=== PATIENT | female | born 1970 | race Caucasian/White ===

== ENCOUNTER 2018-03-16 15:47 | Emergency (ER) | payer OTHER ==
[~2018-03-16] VITALS: Ht 154.9 cm; Wt 96.6 kg
[~2018-03-16 15:47] MED LIST: AMIT50; AMLO10 PO; ASPI81EC PO; AZITHROMYCIN; BENADRYL; BUPR150ER PO; BUPR150T2 PO; CHOLESTEROL MED; DIVA125EC; DIVA250EC; FAMO20; HYDACE5 PO; IBUP600 PO; Inderal60 MG PO; Kristalose20 GM PO; LATUDA; LATUDA120 MG PO; MAGCIT300 PO; MULVITMINE; NAPR500 PO; OLAN10 PO; OLAN2.5 PO; OMEP20ER PO; OMEP40CA12 PO; OXYACE5T PO; PRAV20 PO; PRAZ1 PO; PROACE100 PO; PROP10 PO; RANI150; RANI150 PO; RXNEOPOLHC AD; SIMV10 PO; SIMV20 PO; SIMV40 PO; STOOL SOFTNERS; TRAM50 PO
== END 2018-03-16 16:54 | disposition home or self-care (01) ==
LOC: ER 15:47
DX: J06.9 Acute upper respiratory infection, unspecified (principal); F41.9 Anxiety disorder, unspecified; I10 Essential (primary) hypertension; E78.5 Hyperlipidemia, unspecified; F31.9 Bipolar disorder, unspecified; Z88.5 Allergy status to narcotic agent; Z88.6 Allergy status to analgesic agent; Z88.0 Allergy status to penicillin; Z88.8 Allergy status to other drugs, medicaments and biological substances; Z79.899 Other long term (current) drug therapy
CPT/HCPCS: 99283

== ENCOUNTER → 2018-06-23 | Outpatient (CLI) | payer OTHER ==
[2018-06-25 14:07] LABS: HPV 16 Negative (Negative); HPV 18 Negative (Negative); HPV OTHER HR TYPES Negative (Negative)
== END | disposition home or self-care (01) ==
LOC: LAB 11:51 → LAB SHORT 11:51
PROVIDERS: Obstetrics & Gynecology
DX: Z01.419 Encounter for gynecological examination (general) (routine) without abnormal findings (principal)
CPT/HCPCS: 87624; G0123

== ENCOUNTER 2018-09-25 14:12 | Emergency (ER) | payer OTHER ==
[~2018-09-25] VITALS: Ht 154.9 cm; Wt 90.7 kg
[2018-09-25] MEDS ORDERED: Moviprep Powde1 EACH PO (18:42)
== END 2018-09-25 18:56 | disposition home or self-care (01) ==
LOC: ER 14:12
DX: K59.00 Constipation, unspecified (principal); F41.9 Anxiety disorder, unspecified; I10 Essential (primary) hypertension; E78.5 Hyperlipidemia, unspecified; F31.9 Bipolar disorder, unspecified; Z88.0 Allergy status to penicillin; Z88.6 Allergy status to analgesic agent; Z88.8 Allergy status to other drugs, medicaments and biological substances; Z79.899 Other long term (current) drug therapy
CPT/HCPCS: 74019; 99283-25

== ENCOUNTER 2018-12-04 19:54 | Emergency (ER) | payer OTHER ==
[~2018-12-04] VITALS: Ht 175.3 cm; Wt 86.2 kg
[~2018-12-04 19:54] MED LIST changes: +Moviprep Powde1 EACH PO
[2018-12-04 20:53] LABS: BASOPHILS ABSOLUTE AUTO 0.05 K/mm3 (0.00-0.23); BASOPHILS PERCENT AUTO 1 % (0-2); EOSINOPHILS ABSOLUTE AUTO 0.27 K/mm3 (0.00-0.68); EOSINOPHILS PERCENT AUTO 3 % (0-6); Hematocrit 40.7 % (33.0-51.0); Hemoglobin 13.2 g/dL (11.5-16.0); IMMATURE GRAN ABSOLUTE AUTO 0.03 K/mm3 (0.00-0.10); IMMATURE GRAN PERCENT AUTO 0 % (0-1); LYMPHOCYTES ABSOLUTE AUTO 3.06 K/mm3 (0.84-5.20); LYMPHOCYTES PERCENT AUTO 29 % (21-46); MONOCYTES ABSOLUTE AUTO 0.89 K/mm3 (0.16-1.47); MONOCYTES PERCENT AUTO 8 % (4-13); Mean Corpuscular HGB 29.9 pg (26.0-34.0); Mean Corpuscular HGB Conc 32.4 g/dL (31.5-36.5); Mean Corpuscular Volume 92 fL (80-100); Mean Platelet Volume 10.5 fL (9.1-12.4); NEUTROPHILS ABSOLUTE AUTO 6.41 K/mm3 (1.96-9.15); NEUTROPHILS PERCENT AUTO 60 % (41-73); Platelet Count 311 K/mm3 (150-400); RDW Coefficient Variation 12.5 % (11.7-14.2); RDW Standard Deviation 42.1 fL (35.1-46.3); Red Blood Cell Count 4.42 M/mm3 (3.80-5.20); White Blood Cell Count 10.71 K/mm3 (4.00-11.30)
[2018-12-04 21:10] LABS: Alanine Aminotransfer (ALT/SGP 21 U/L (12-78); Albumin, Blood 3.5 g/dL (3.4-5.0); Alk Phos 94 U/L (50-136); Anion Gap 6 mmol/L (6-16); Aspartate Aminotrans (AST/SGOT 15 U/L (12-37); Bilirubin, Total 0.2 mg/dL (0.1-1.0); Blood Urea Nitrogen 9 mg/dL (8-24); Bun/Creatinine Ratio 11.5 (12.0-20.0); CO2, Blood 28 mmol/L (21-32); Calcium, Blood 8.4 mg/dL (8.5-10.1); Chloride, Blood 107 mmol/L (98-108); Creatinine, Blood 0.78 mg/dL (0.40-1.00); Globulin, Blood 3.4 g/dL (2.2-4.0); Glomerular Filtration Rate >60 (60-); Glucose, Blood 89 mg/dL (70-99); Potassium, Blood 3.7 mmol/L (3.5-5.5); Sodium, Blood 141 mmol/L (136-145); Total Protein, Blood 6.9 g/dL (6.4-8.2)
== END 2018-12-05 00:10 | disposition home or self-care (01) ==
LOC: ER 19:54
PROVIDERS: Emergency Medicine
DX: R10.11 Right upper quadrant pain (principal); R74.8 Abnormal levels of other serum enzymes; R11.2 Nausea with vomiting, unspecified; I10 Essential (primary) hypertension; F41.9 Anxiety disorder, unspecified; F31.9 Bipolar disorder, unspecified; E78.5 Hyperlipidemia, unspecified; Z88.5 Allergy status to narcotic agent; Z88.8 Allergy status to other drugs, medicaments and biological substances; Z88.0 Allergy status to penicillin; Z91.018 Allergy to other foods; Z79.899 Other long term (current) drug therapy
CPT/HCPCS: 36415; 74177; 80053; 83690; 85025; 96374-59; 99284-25; J2405; J7120; Q9967

== ENCOUNTER 2019-01-26 09:53 | Day surgery (SDC) | payer OTHER ==
[~2019-01-26] VITALS: Ht 154.9 cm; Wt 90.7 kg
[~2019-01-26 09:53] MED LIST changes: +ATOR40TA; +DORZOLAMIDE 2%10 ML; +ERYT1OIN; +IBUP800; +LATA.005SO; +LOSARTAN POTAS100 MG; +Naltrexone HCl50 MG; +ONDA4; +PREDNISOLONE ACE5 ML; +PROP10; +TIMDOROPSO; +TIMO.5OPSO; +Zantac150 MG
--- NOTE | 2019-01-26 11:20 | NUR ---
01/26/19 1120 MELINDA POOLE 1 IV ATTEMPT VEIN ROLLED 2 IV ATTEMPT BY GEOFFREY ROBERTSON
[2019-01-27] MEDS ORDERED: Bentyl20 MG PO (21:41)
== END 2019-01-26 12:11 | disposition home or self-care (01) ==
LOC: ORSCSDS 09:53
PROVIDERS: Internal Medicine Gastroenterology
PROC: 0DB68ZX Excision of Stomach, Via Natural or Artificial Opening Endoscopic, Diagnostic (ICD-10-PCS; principal; 2019-01-26 11:00)
DX: R10.13 Epigastric pain (principal); R11.0 Nausea; K29.80 Duodenitis without bleeding; K29.70 Gastritis, unspecified, without bleeding; K58.1 Irritable bowel syndrome with constipation; I10 Essential (primary) hypertension; E78.5 Hyperlipidemia, unspecified; E66.9 Obesity, unspecified; Z68.38 Body mass index [BMI] 38.0-38.9, adult; F31.9 Bipolar disorder, unspecified; Z79.899 Other long term (current) drug therapy
CPT/HCPCS: 88305; 88342; J2704; J7120

== ENCOUNTER 2019-01-27 17:52 | Emergency (ER) | payer OTHER ==
[~2019-01-27] VITALS: Ht 154.9 cm; Wt 90.7 kg
[2019-01-27 18:50] LABS: BASOPHILS ABSOLUTE AUTO 0.05 K/mm3 (0.00-0.23); BASOPHILS PERCENT AUTO 0 % (0-2); EOSINOPHILS ABSOLUTE AUTO 0.24 K/mm3 (0.00-0.68); EOSINOPHILS PERCENT AUTO 2 % (0-6); Hematocrit 46.6 % (33.0-51.0); Hemoglobin 15.2 g/dL (11.5-16.0); IMMATURE GRAN ABSOLUTE AUTO 0.05 K/mm3 (0.00-0.10); IMMATURE GRAN PERCENT AUTO 0 % (0-1); LYMPHOCYTES ABSOLUTE AUTO 2.18 K/mm3 (0.84-5.20); LYMPHOCYTES PERCENT AUTO 15 % (21-46); MONOCYTES ABSOLUTE AUTO 1.04 K/mm3 (0.16-1.47); MONOCYTES PERCENT AUTO 7 % (4-13); Mean Corpuscular HGB 29.7 pg (26.0-34.0); Mean Corpuscular HGB Conc 32.6 g/dL (31.5-36.5); Mean Corpuscular Volume 91 fL (80-100); NEUTROPHILS PERCENT AUTO 75 % (41-73); Platelet Count 337 K/mm3 (150-400); RDW Coefficient Variation 12.1 % (11.7-14.2); RDW Standard Deviation 40.4 fL (35.1-46.3); Red Blood Cell Count 5.12 M/mm3 (3.80-5.20); White Blood Cell Count 14.46 K/mm3 (4.00-11.30)
[2019-01-27 19:21] LABS: Alanine Aminotransfer (ALT/SGP 21 U/L (12-78); Albumin, Blood 3.4 g/dL (3.4-5.0); Albumin/Globulin Ratio 0.9 (0.8-1.8); Alk Phos 89 U/L (50-136); Anion Gap 6 mmol/L (6-16); Aspartate Aminotrans (AST/SGOT 15 U/L (12-37); Bilirubin, Total 0.4 mg/dL (0.1-1.0); Blood Urea Nitrogen 8 mg/dL (8-24); CO2, Blood 27 mmol/L (21-32); Calcium, Blood 8.8 mg/dL (8.5-10.1); Chloride, Blood 107 mmol/L (98-108); Creatinine, Blood 0.73 mg/dL (0.40-1.00); Globulin, Blood 3.9 g/dL (2.2-4.0); Glomerular Filtration Rate >60 (60-); Glucose, Blood 97 mg/dL (70-99); Potassium, Blood 4.2 mmol/L (3.5-5.5); Sodium, Blood 140 mmol/L (136-145); Total Protein, Blood 7.3 g/dL (6.4-8.2)
[2019-01-27] MEDS ORDERED: Bentyl20 MG PO (21:41)
== END 2019-01-27 22:02 | disposition home or self-care (01) ==
LOC: ER 17:52
PROVIDERS: Physician Assistant
DX: K52.9 Noninfective gastroenteritis and colitis, unspecified (principal); K29.90 Gastroduodenitis, unspecified, without bleeding; I10 Essential (primary) hypertension; F41.9 Anxiety disorder, unspecified; E78.5 Hyperlipidemia, unspecified; F31.9 Bipolar disorder, unspecified; Z88.5 Allergy status to narcotic agent; Z88.0 Allergy status to penicillin; Z91.018 Allergy to other foods; Z88.8 Allergy status to other drugs, medicaments and biological substances; Z79.899 Other long term (current) drug therapy
CPT/HCPCS: 36415; 74177; 80053; 83690; 85025; 96374-59; 99284-25; J2405; Q9967

== ENCOUNTER 2019-02-27 16:08 | Observation (INO) | payer OTHER ==
[~2019-02-27] VITALS: Ht 154.9 cm; Wt 90.7 kg
[~2019-02-27 16:08] MED LIST changes: +Bentyl20 MG PO
[2019-02-27] MEDS ORDERED: BUPROPION XL150 M1 PO (17:06)
[2019-02-27] MEDS ORDERED: PRAZOSIN HCL1 MG PO (17:10)
[2019-02-27] MEDS ORDERED: Prilosec Otc20 MG PO (17:10)
[2019-02-27] MEDS ORDERED: NATURAL LAXATI8.6 MG PO (17:10)
[2019-02-27] MEDS ORDERED: ATORVASTATIN CA40 MG PO (17:11)
[2019-02-27] MEDS ORDERED: LOSARTAN POTAS100 MG PO (17:11)
[2019-02-27] MEDS ORDERED: LATUDA40 MG PO (17:11)
[2019-02-27] MEDS ORDERED: Naltrexone HCl50 MG PO (17:12)
[2019-02-27] MEDS ORDERED: PROP10 PO (17:13)
[2019-02-27 17:31] LABS: BASOPHILS ABSOLUTE AUTO 0.05 K/mm3 (0.00-0.23); BASOPHILS PERCENT AUTO 1 % (0-2); EOSINOPHILS ABSOLUTE AUTO 0.25 K/mm3 (0.00-0.68); EOSINOPHILS PERCENT AUTO 3 % (0-6); Hematocrit 43.2 % (33.0-51.0); IMMATURE GRAN ABSOLUTE AUTO 0.02 K/mm3 (0.00-0.10); IMMATURE GRAN PERCENT AUTO 0 % (0-1); LYMPHOCYTES ABSOLUTE AUTO 2.09 K/mm3 (0.84-5.20); LYMPHOCYTES PERCENT AUTO 23 % (21-46); MONOCYTES ABSOLUTE AUTO 0.75 K/mm3 (0.16-1.47); MONOCYTES PERCENT AUTO 8 % (4-13); Mean Corpuscular HGB 29.5 pg (26.0-34.0); Mean Corpuscular HGB Conc 32.4 g/dL (31.5-36.5); Mean Corpuscular Volume 91 fL (80-100); Mean Platelet Volume 10.4 fL (9.1-12.4); NEUTROPHILS ABSOLUTE AUTO 5.78 K/mm3 (1.96-9.15); NEUTROPHILS PERCENT AUTO 65 % (41-73); Platelet Count 318 K/mm3 (150-400); RDW Coefficient Variation 11.9 % (11.7-14.2); RDW Standard Deviation 39.9 fL (35.1-46.3); Red Blood Cell Count 4.74 M/mm3 (3.80-5.20); White Blood Cell Count 8.94 K/mm3 (4.00-11.30)
[2019-02-27] MEDS ORDERED: Fiber Therapy0.52 GM PO (17:34)
[2019-02-27] MEDS ORDERED: COLACE100 MG PO (17:36)
[2019-02-27 17:50] LABS: Alanine Aminotransfer (ALT/SGP 25 U/L (12-78); Albumin, Blood 3.4 g/dL (3.4-5.0); Albumin/Globulin Ratio 0.9 (0.8-1.8); Alk Phos 85 U/L (50-136); Anion Gap 4 mmol/L (6-16); Aspartate Aminotrans (AST/SGOT 13 U/L (12-37); Bilirubin, Total 0.2 mg/dL (0.1-1.0); Blood Urea Nitrogen 7 mg/dL (8-24); Bun/Creatinine Ratio 9.6 (12.0-20.0); CO2, Blood 29 mmol/L (21-32); Calcium, Blood 8.3 mg/dL (8.5-10.1); Chloride, Blood 105 mmol/L (98-108); Creatinine, Blood 0.73 mg/dL (0.40-1.00); Ethanol (Alcohol), Blood, Med <3 mg/dL; Globulin, Blood 3.7 g/dL (2.2-4.0); Glomerular Filtration Rate >60 (60-); Glucose, Blood 97 mg/dL (70-99); Potassium, Blood 3.8 mmol/L (3.5-5.5); Salicylate <1.7 mg/dL (2.8-20.0); Sodium, Blood 138 mmol/L (136-145); Total Protein, Blood 7.1 g/dL (6.4-8.2)
[2019-02-27 17:52] LABS: Acetaminophen, Random <2.0 ug/mL (10.0-30.0)
[2019-02-27 18:22] LABS: Source, Urine Clean Catch
[2019-02-27 18:28] LABS: Bilirubin, Urine Neg (Neg); Blood, Urine 5+ (Neg); Glucose Qualitative, Urine Neg (Neg); Ketones, Urine Neg (Neg); Leukocyte Esterase, Urine 3+ (Neg); Nitrite, Urine Neg (Neg); Protein, Urine 3+ (Neg); Urobilinogen, Urine NORM (Normal)
[2019-02-27 18:35] LABS: Appearance, Urine Bloody (Clear); Color, Urine Red (P-Yellow)
[2019-02-27 18:36] LABS: Bacteria Mod /hpf; Red Blood Cells, Urine TNTC /hpf (0-2); Squamous Epithelial Cells Few /hpf (Few)
[2019-02-27 18:41] LABS: U Amphetamine Screen Not Detected; U Barbituate Screen Not Detected; U Benzodiazapine Screen Not Detected; U Buprenorphine Screen Not Detected; U Cannabinoids Screen Not Detected; U Cocaine Screen Not Detected; U Methadone Screen Not Detected; U Methamphetamine Screen Not Detected; U Opiates Screen Not Detected; U Oxycodone Screen Not Detected; U Phencyclidine Screen Not Detected; U Propoxyphene Screen Not Detected
[2019-02-27] MEDS ORDERED: Klonopin0.5 MG PO (23:27)
== END 2019-02-27 23:49 | disposition home or self-care (01) ==
LOC: ER 16:08 → EOR 17:10
PROVIDERS: Physician Assistant; ADMIT Emergency Medicine
DX: F39 Unspecified mood [affective] disorder (principal); F60.3 Borderline personality disorder; F31.9 Bipolar disorder, unspecified; F43.10 Post-traumatic stress disorder, unspecified; H54.8 Legal blindness, as defined in USA; I10 Essential (primary) hypertension; E78.5 Hyperlipidemia, unspecified; Z79.899 Other long term (current) drug therapy; Z88.0 Allergy status to penicillin; Z88.4 Allergy status to anesthetic agent; Z88.5 Allergy status to narcotic agent; Z88.6 Allergy status to analgesic agent; Z88.8 Allergy status to other drugs, medicaments and biological substances
CPT/HCPCS: 80053; 81001; 81025; 85025; 87086; 99285; G0378; G0480; Q3014

== ENCOUNTER 2019-03-09 14:07 | Emergency (ER) | payer OTHER ==
[~2019-03-09] VITALS: Ht 154.9 cm; Wt 92.1 kg
[~2019-03-09 14:07] MED LIST changes: +ATORVASTATIN CA40 MG PO; +BUPROPION XL150 M1 PO; +COLACE100 MG PO; +Fiber Therapy0.52 GM PO; +Klonopin0.5 MG PO; +LATUDA40 MG PO; +LOSARTAN POTAS100 MG PO; +NATURAL LAXATI8.6 MG PO; +Naltrexone HCl50 MG PO; +PRAZOSIN HCL1 MG PO; +Prilosec Otc20 MG PO
[2019-03-09 15:04] LABS: BASOPHILS ABSOLUTE AUTO 0.04 K/mm3 (0.00-0.23); BASOPHILS PERCENT AUTO 0 % (0-2); EOSINOPHILS PERCENT AUTO 2 % (0-6); Hematocrit 44.3 % (33.0-51.0); Hemoglobin 14.4 g/dL (11.5-16.0); IMMATURE GRAN ABSOLUTE AUTO 0.03 K/mm3 (0.00-0.10); IMMATURE GRAN PERCENT AUTO 0 % (0-1); LYMPHOCYTES ABSOLUTE AUTO 1.89 K/mm3 (0.84-5.20); LYMPHOCYTES PERCENT AUTO 19 % (21-46); MONOCYTES ABSOLUTE AUTO 0.78 K/mm3 (0.16-1.47); MONOCYTES PERCENT AUTO 8 % (4-13); Mean Corpuscular HGB 29.2 pg (26.0-34.0); Mean Corpuscular HGB Conc 32.5 g/dL (31.5-36.5); Mean Corpuscular Volume 90 fL (80-100); Mean Platelet Volume 10.6 fL (9.1-12.4); NEUTROPHILS ABSOLUTE AUTO 7.09 K/mm3 (1.96-9.15); NEUTROPHILS PERCENT AUTO 71 % (41-73); Platelet Count 289 K/mm3 (150-400); RDW Standard Deviation 39.5 fL (35.1-46.3); Red Blood Cell Count 4.93 M/mm3 (3.80-5.20); White Blood Cell Count 10.03 K/mm3 (4.00-11.30)
[2019-03-09 15:31] LABS: Alanine Aminotransfer (ALT/SGP 27 U/L (12-78); Albumin, Blood 3.3 g/dL (3.4-5.0); Albumin/Globulin Ratio 0.9 (0.8-1.8); Alk Phos 86 U/L (50-136); Anion Gap 4 mmol/L (6-16); Aspartate Aminotrans (AST/SGOT 12 U/L (12-37); Beta HCG, Quantitative, Serum <1 mIU/mL (0-3); Bilirubin, Total 0.3 mg/dL (0.1-1.0); Blood Urea Nitrogen 8 mg/dL (8-24); Bun/Creatinine Ratio 11.1 (12.0-20.0); CO2, Blood 30 mmol/L (21-32); Calcium, Blood 8.3 mg/dL (8.5-10.1); Chloride, Blood 106 mmol/L (98-108); Creatinine, Blood 0.72 mg/dL (0.40-1.00); Globulin, Blood 3.6 g/dL (2.2-4.0); Glomerular Filtration Rate >60 (60-); Glucose, Blood 100 mg/dL (70-99); Potassium, Blood 4.1 mmol/L (3.5-5.5); Sodium, Blood 140 mmol/L (136-145); Total Protein, Blood 6.9 g/dL (6.4-8.2)
[2019-03-09] MEDS ORDERED: OMEPRAZOLE MAGN20 MG PO (15:45)
[2019-03-09] MEDS ORDERED: BELPTAB PO (15:45)
== END 2019-03-09 16:03 | disposition home or self-care (01) ==
LOC: ER 14:07
PROVIDERS: Emergency Medicine
DX: R10.13 Epigastric pain (principal); E78.5 Hyperlipidemia, unspecified; Z88.5 Allergy status to narcotic agent; Z88.0 Allergy status to penicillin; Z88.6 Allergy status to analgesic agent; Z88.8 Allergy status to other drugs, medicaments and biological substances; Z79.899 Other long term (current) drug therapy
CPT/HCPCS: 80053; 83690; 84702; 85025; 96361; 96374; 96375; 99284-25; J2060; J2405; J7120

== ENCOUNTER 2019-07-02 16:42 | Observation (INO) | payer OTHER ==
[~2019-07-02] VITALS: Ht 154.9 cm; Wt 90.7 kg
[~2019-07-02 16:42] MED LIST changes: +BELPTAB PO; +OMEPRAZOLE MAGN20 MG PO
[2019-07-02 17:57] LABS: Source, Urine Clean Catch
[2019-07-02 18:03] LABS: Bilirubin, Urine Neg (Neg); Blood, Urine Neg (Neg); Glucose Qualitative, Urine Neg (Neg); Ketones, Urine 2+ (Neg); Leukocyte Esterase, Urine Neg (Neg); Nitrite, Urine Neg (Neg); Protein, Urine Neg (Neg); Urobilinogen, Urine NORM (Normal)
[2019-07-02 18:09] LABS: Appearance, Urine Clear (Clear); Color, Urine Yellow (P-Yellow)
[2019-07-02 18:23] LABS: U Amphetamine Screen Not Detected; U Barbituate Screen Not Detected; U Benzodiazapine Screen Not Detected; U Buprenorphine Screen Not Detected; U Cannabinoids Screen Not Detected; U Cocaine Screen Not Detected; U Methadone Screen Not Detected; U Methamphetamine Screen Not Detected; U Opiates Screen Not Detected; U Oxycodone Screen Not Detected; U Phencyclidine Screen Not Detected; U Propoxyphene Screen Not Detected
[2019-07-02 18:37] LABS: BASOPHILS ABSOLUTE AUTO 0.06 K/mm3 (0.00-0.23); BASOPHILS PERCENT AUTO 1 % (0-2); EOSINOPHILS ABSOLUTE AUTO 0.17 K/mm3 (0.00-0.68); EOSINOPHILS PERCENT AUTO 2 % (0-6); Hematocrit 43.3 % (33.0-51.0); IMMATURE GRAN ABSOLUTE AUTO 0.04 K/mm3 (0.00-0.10); IMMATURE GRAN PERCENT AUTO 0 % (0-1); LYMPHOCYTES PERCENT AUTO 19 % (21-46); MONOCYTES ABSOLUTE AUTO 0.76 K/mm3 (0.16-1.47); MONOCYTES PERCENT AUTO 7 % (4-13); Mean Corpuscular HGB 28.6 pg (26.0-34.0); Mean Corpuscular HGB Conc 32.3 g/dL (31.5-36.5); Mean Corpuscular Volume 89 fL (80-100); Mean Platelet Volume 10.2 fL (9.1-12.4); NEUTROPHILS ABSOLUTE AUTO 7.69 K/mm3 (1.96-9.15); NEUTROPHILS PERCENT AUTO 71 % (41-73); Platelet Count 329 K/mm3 (150-400); RDW Coefficient Variation 12.3 % (11.7-14.2); RDW Standard Deviation 40.2 fL (35.1-46.3); Red Blood Cell Count 4.89 M/mm3 (3.80-5.20); White Blood Cell Count 10.82 K/mm3 (4.00-11.30)
[2019-07-02 18:58] LABS: Alanine Aminotransfer (ALT/SGP 21 U/L (12-78); Albumin, Blood 3.5 g/dL (3.4-5.0); Albumin/Globulin Ratio 0.9 (0.8-1.8); Alk Phos 100 U/L (50-136); Anion Gap 5 mmol/L (6-16); Aspartate Aminotrans (AST/SGOT 16 U/L (12-37); Bilirubin, Total 0.3 mg/dL (0.1-1.0); Blood Urea Nitrogen 8 mg/dL (8-24); Bun/Creatinine Ratio 11.8 (12.0-20.0); CO2, Blood 27 mmol/L (21-32); Calcium, Blood 8.4 mg/dL (8.5-10.1); Chloride, Blood 105 mmol/L (98-108); Creatinine, Blood 0.68 mg/dL (0.40-1.00); Ethanol (Alcohol), Blood, Med <3 mg/dL; Globulin, Blood 3.9 g/dL (2.2-4.0); Glomerular Filtration Rate >60 (60-); Glucose, Blood 103 mg/dL (70-99); Potassium, Blood 3.6 mmol/L (3.5-5.5); Sodium, Blood 137 mmol/L (136-145); Total Protein, Blood 7.4 g/dL (6.4-8.2)
== END 2019-07-04 12:35 | disposition home or self-care (01) ==
LOC: ER 16:42 → EOR 16:43
PROVIDERS: ADMIT Emergency Medicine
DX: F31.9 Bipolar disorder, unspecified (principal); F60.3 Borderline personality disorder; E78.5 Hyperlipidemia, unspecified; Z88.0 Allergy status to penicillin; Z88.6 Allergy status to analgesic agent; Z88.5 Allergy status to narcotic agent; Z88.8 Allergy status to other drugs, medicaments and biological substances; Z79.899 Other long term (current) drug therapy
CPT/HCPCS: 36415; 80053; 81003; 85025; 99285; G0378; G0480; Q3014

== ENCOUNTER 2019-11-16 09:44 | Emergency (ER) | payer OTHER ==
[~2019-11-16] VITALS: Ht 154.9 cm; Wt 99.3 kg
[2019-11-16 10:14] LABS: Source, Urine Clean Catch
[2019-11-16 10:21] LABS: Appearance, Urine Clear (Clear); Bilirubin, Urine Neg (Neg); Blood, Urine Neg (Neg); Color, Urine Yellow (P-Yellow); Glucose Qualitative, Urine Neg (Neg); Ketones, Urine Neg (Neg); Leukocyte Esterase, Urine Neg (Neg); Nitrite, Urine Neg (Neg); Protein, Urine Neg (Neg); Specific Gravity, Urine 1.005 (1.003-1.022); Urobilinogen, Urine NORM (Normal)
[2019-11-16 10:26] LABS: BASOPHILS ABSOLUTE AUTO 0.04 K/mm3 (0.00-0.23); BASOPHILS PERCENT AUTO 0 % (0-2); EOSINOPHILS ABSOLUTE AUTO 0.25 K/mm3 (0.00-0.68); EOSINOPHILS PERCENT AUTO 3 % (0-6); Hematocrit 41.9 % (33.0-51.0); Hemoglobin 13.5 g/dL (11.5-16.0); IMMATURE GRAN ABSOLUTE AUTO 0.03 K/mm3 (0.00-0.10); IMMATURE GRAN PERCENT AUTO 0 % (0-1); LYMPHOCYTES ABSOLUTE AUTO 1.97 K/mm3 (0.84-5.20); LYMPHOCYTES PERCENT AUTO 21 % (21-46); MONOCYTES ABSOLUTE AUTO 0.86 K/mm3 (0.16-1.47); MONOCYTES PERCENT AUTO 9 % (4-13); Mean Corpuscular HGB 29.2 pg (26.0-34.0); Mean Corpuscular HGB Conc 32.2 g/dL (31.5-36.5); Mean Corpuscular Volume 91 fL (80-100); Mean Platelet Volume 10.2 fL (9.1-12.4); NEUTROPHILS ABSOLUTE AUTO 6.45 K/mm3 (1.96-9.15); NEUTROPHILS PERCENT AUTO 67 % (41-73); Platelet Count 272 K/mm3 (150-400); RDW Coefficient Variation 12.8 % (11.7-14.2); Red Blood Cell Count 4.62 M/mm3 (3.80-5.20)
[2019-11-16 10:43] LABS: Alanine Aminotransfer (ALT/SGP 31 U/L (12-78); Albumin, Blood 3.2 g/dL (3.4-5.0); Albumin/Globulin Ratio 0.9 (0.8-1.8); Alk Phos 88 U/L (50-136); Anion Gap 6 mmol/L (6-16); Aspartate Aminotrans (AST/SGOT 15 U/L (12-37); Bilirubin, Total 0.4 mg/dL (0.1-1.0); Blood Urea Nitrogen 6 mg/dL (8-24); Bun/Creatinine Ratio 7.8 (12.0-20.0); CO2, Blood 29 mmol/L (21-32); Calcium, Blood 8.2 mg/dL (8.5-10.1); Chloride, Blood 105 mmol/L (98-108); Creatinine, Blood 0.77 mg/dL (0.40-1.00); Globulin, Blood 3.7 g/dL (2.2-4.0); Glomerular Filtration Rate >60 (60-); Glucose, Blood 94 mg/dL (70-99); Potassium, Blood 3.8 mmol/L (3.5-5.5); Sodium, Blood 140 mmol/L (136-145); Total Protein, Blood 6.9 g/dL (6.4-8.2)
== END 2019-11-16 13:55 | disposition home or self-care (01) ==
LOC: ER 09:44
PROVIDERS: Emergency Medicine
DX: R10.30 Lower abdominal pain, unspecified (principal); G89.29 Other chronic pain; Z88.0 Allergy status to penicillin; Z88.5 Allergy status to narcotic agent; Z88.8 Allergy status to other drugs, medicaments and biological substances; Z79.899 Other long term (current) drug therapy; F31.9 Bipolar disorder, unspecified; F41.9 Anxiety disorder, unspecified; I10 Essential (primary) hypertension; E78.5 Hyperlipidemia, unspecified
CPT/HCPCS: 36415; 74177; 80053; 81003; 85025; 99284-25; Q9967

== ENCOUNTER → 2019-12-14 | Outpatient (CLI) | payer OTHER ==
[~2019-12-14] MED LIST changes: +BRIMONIDINE TART5 M1; +FLUO10 PO; +ONDA4ODT MM; +SENN187 PO; +TIMO.5OPSO BOTHEYES; +VOLTAREN ARTHRI20 GM TOP; +ZIPR40 PO
[2019-12-16 17:09] LABS: HPV 16 Negative (Negative); HPV 18 Negative (Negative); HPV OTHER HR TYPES Negative (Negative)
== END | disposition home or self-care (01) ==
LOC: LAB SHORT 12:04 → LAB 12:04
PROVIDERS: Obstetrics & Gynecology
DX: Z01.419 Encounter for gynecological examination (general) (routine) without abnormal findings (principal)
CPT/HCPCS: 87624; G0123

== ENCOUNTER 2020-01-02 17:36 | Observation (INO) | payer OTHER ==
[~2020-01-02] VITALS: Ht 154.9 cm; Wt 99.3 kg
[~2020-01-02 17:36] MED LIST changes: -BRIMONIDINE TART5 M1; -FLUO10 PO; -ONDA4ODT MM; -SENN187 PO; -TIMO.5OPSO BOTHEYES; -VOLTAREN ARTHRI20 GM TOP; -ZIPR40 PO
[2020-01-02] MEDS ORDERED: SENN187 PO (20:04)
[2020-01-02] MEDS ORDERED: VOLTAREN ARTHRI20 GM TOP (20:06)
[2020-01-02] MEDS ORDERED: ZIPR40 PO (20:08)
[2020-01-02] MEDS ORDERED: ONDA4ODT MM (20:09)
[2020-01-02] MEDS ORDERED: FLUO10 PO (20:11)
[2020-01-02] MEDS ORDERED: TIMO.5OPSO BOTHEYES (20:14)
[2020-01-02] MEDS ORDERED: BRIMONIDINE TART5 M1 (20:14)
[2020-01-02 20:17] LABS: Source, Urine Clean Catch
[2020-01-02 20:20] LABS: Appearance, Urine Clear (Clear); Bilirubin, Urine Neg (Neg); Blood, Urine Neg (Neg); Color, Urine Yellow (P-Yellow); Glucose Qualitative, Urine Neg (Neg); Ketones, Urine Neg (Neg); Leukocyte Esterase, Urine Neg (Neg); Nitrite, Urine Neg (Neg); Protein, Urine Neg (Neg); Urobilinogen, Urine NORM (Normal); pH, Urine 6.5 (5.0-8.0)
[2020-01-02 20:43] LABS: U Amphetamine Screen Not Detected; U Barbituate Screen Not Detected; U Benzodiazapine Screen Not Detected; U Buprenorphine Screen Not Detected; U Cannabinoids Screen Not Detected; U Cocaine Screen Not Detected; U Methadone Screen Not Detected; U Methamphetamine Screen Not Detected; U Opiates Screen Not Detected; U Oxycodone Screen Not Detected; U Phencyclidine Screen Not Detected; U Propoxyphene Screen Not Detected
[2020-01-02 20:45] LABS: BASOPHILS ABSOLUTE AUTO 0.07 K/mm3 (0.00-0.23); BASOPHILS PERCENT AUTO 1 % (0-2); EOSINOPHILS ABSOLUTE AUTO 0.31 K/mm3 (0.00-0.68); EOSINOPHILS PERCENT AUTO 3 % (0-6); Hematocrit 43.5 % (33.0-51.0); Hemoglobin 13.9 g/dL (11.5-16.0); IMMATURE GRAN ABSOLUTE AUTO 0.06 K/mm3 (0.00-0.10); IMMATURE GRAN PERCENT AUTO 1 % (0-1); LYMPHOCYTES ABSOLUTE AUTO 2.96 K/mm3 (0.84-5.20); LYMPHOCYTES PERCENT AUTO 27 % (21-46); MONOCYTES ABSOLUTE AUTO 1.17 K/mm3 (0.16-1.47); MONOCYTES PERCENT AUTO 11 % (4-13); Mean Corpuscular HGB 28.8 pg (26.0-34.0); Mean Corpuscular Volume 90 fL (80-100); Mean Platelet Volume 10.1 fL (9.1-12.4); NEUTROPHILS ABSOLUTE AUTO 6.59 K/mm3 (1.96-9.15); NEUTROPHILS PERCENT AUTO 59 % (41-73); Platelet Count 336 K/mm3 (150-400); RDW Coefficient Variation 13.1 % (11.7-14.2); RDW Standard Deviation 42.9 fL (35.1-46.3); Red Blood Cell Count 4.82 M/mm3 (3.80-5.20); White Blood Cell Count 11.16 K/mm3 (4.00-11.30)
[2020-01-02] MEDS ORDERED: BUPR150ER PO (20:52)
[2020-01-02 21:20] LABS: Alanine Aminotransfer (ALT/SGP 32 U/L (12-78); Albumin, Blood 3.3 g/dL (3.4-5.0); Albumin/Globulin Ratio 0.9 (0.8-1.8); Alk Phos 87 U/L (50-136); Anion Gap 6 mmol/L (6-16); Aspartate Aminotrans (AST/SGOT 12 U/L (12-37); Bilirubin, Total 0.4 mg/dL (0.1-1.0); Blood Urea Nitrogen 8 mg/dL (8-24); Bun/Creatinine Ratio 11.4 (12.0-20.0); CO2, Blood 28 mmol/L (21-32); Calcium, Blood 8.5 mg/dL (8.5-10.1); Chloride, Blood 106 mmol/L (98-108); Ethanol (Alcohol), Blood, Med <3 mg/dL; Globulin, Blood 3.8 g/dL (2.2-4.0); Glomerular Filtration Rate >60 (60-); Glucose, Blood 88 mg/dL (70-99); Salicylate <1.7 mg/dL (2.8-20.0); Sodium, Blood 140 mmol/L (136-145); Thyroxine (T4) 11.2 ug/dL (4.8-13.9); Total Protein, Blood 7.1 g/dL (6.4-8.2)
[2020-01-02 21:23] LABS: Acetaminophen, Random <2.0 ug/mL (10.0-30.0)
== END 2020-01-04 00:10 ==
LOC: ER 17:36 → EOR 17:37
PROVIDERS: Physician Assistant; ADMIT Emergency Medicine
DX: F31.9 Bipolar disorder, unspecified (principal); R45.851 Suicidal ideations; Q11.2 Microphthalmos; I10 Essential (primary) hypertension; F41.8 Other specified anxiety disorders; E78.5 Hyperlipidemia, unspecified; F60.3 Borderline personality disorder; K21.9 Gastro-esophageal reflux disease without esophagitis; H40.9 Unspecified glaucoma; E66.9 Obesity, unspecified; Z68.41 Body mass index [BMI] 40.0-44.9, adult; Z88.0 Allergy status to penicillin; Z88.4 Allergy status to anesthetic agent; Z88.5 Allergy status to narcotic agent; Z88.8 Allergy status to other drugs, medicaments and biological substances; Z79.899 Other long term (current) drug therapy; Z20.828 Contact with and (suspected) exposure to other viral communicable diseases
CPT/HCPCS: 36415; 80053; 81003; 81025; 84436; 84443; 85025; 86592; 99285; G0378; G0480; U0003

== ENCOUNTER 2020-01-20 07:33 | Inpatient (IN) | payer OTHER ==
[~2020-01-20] VITALS: Ht 154.9 cm; Wt 101.5 kg
[~2020-01-20 07:33] MED LIST changes: +BRIMONIDINE TART5 M1 BOTHEYES; +FLUO10 PO; +ONDA4ODT MM; +PRAZ2 PO; -PRAZOSIN HCL1 MG PO; +SENN187 PO; +TIMO.5OPSO BOTHEYES; +VOLTAREN ARTHRI20 GM TOP; +ZIPR40 PO
[2020-01-20 08:15] LABS: BASOPHILS ABSOLUTE AUTO 0.07 K/mm3 (0.00-0.23); BASOPHILS PERCENT AUTO 0 % (0-2); EOSINOPHILS ABSOLUTE AUTO 0.12 K/mm3 (0.00-0.68); EOSINOPHILS PERCENT AUTO 1 % (0-6); Hematocrit 44.9 % (33.0-51.0); IMMATURE GRAN ABSOLUTE AUTO 0.06 K/mm3 (0.00-0.10); IMMATURE GRAN PERCENT AUTO 0 % (0-1); LYMPHOCYTES ABSOLUTE AUTO 1.94 K/mm3 (0.84-5.20); LYMPHOCYTES PERCENT AUTO 12 % (21-46); MONOCYTES ABSOLUTE AUTO 0.89 K/mm3 (0.16-1.47); MONOCYTES PERCENT AUTO 6 % (4-13); Mean Corpuscular HGB 29.5 pg (26.0-34.0); Mean Corpuscular HGB Conc 33.4 g/dL (31.5-36.5); Mean Corpuscular Volume 88 fL (80-100); NEUTROPHILS ABSOLUTE AUTO 13.01 K/mm3 (1.96-9.15); NEUTROPHILS PERCENT AUTO 81 % (41-73); Platelet Count 376 K/mm3 (150-400); RDW Coefficient Variation 12.5 % (11.7-14.2); Red Blood Cell Count 5.08 M/mm3 (3.80-5.20); White Blood Cell Count 16.09 K/mm3 (4.00-11.30)
[2020-01-20 08:32] LABS: Alanine Aminotransfer (ALT/SGP 28 U/L (12-78); Albumin, Blood 3.6 g/dL (3.4-5.0); Albumin/Globulin Ratio 0.9 (0.8-1.8); Alk Phos 92 U/L (50-136); Anion Gap 7 mmol/L (6-16); Aspartate Aminotrans (AST/SGOT 17 U/L (12-37); Bilirubin, Total 0.7 mg/dL (0.1-1.0); Blood Urea Nitrogen 8 mg/dL (8-24); Bun/Creatinine Ratio 12.2 (12.0-20.0); CO2, Blood 30 mmol/L (21-32); Calcium, Blood 8.9 mg/dL (8.5-10.1); Chloride, Blood 101 mmol/L (98-108); Creatinine, Blood 0.66 mg/dL (0.40-1.00); Globulin, Blood 3.9 g/dL (2.2-4.0); Glomerular Filtration Rate >60 (60-); Glucose, Blood 124 mg/dL (70-99); Potassium, Blood 3.5 mmol/L (3.5-5.5); Sodium, Blood 138 mmol/L (136-145); Total Protein, Blood 7.5 g/dL (6.4-8.2)
[2020-01-20 09:30] LABS: Source, Urine Clean Catch
[2020-01-20 09:40] LABS: Bilirubin, Urine Neg (Neg); Blood, Urine 5+ (Neg); Glucose Qualitative, Urine Neg (Neg); Ketones, Urine 2+ (Neg); Leukocyte Esterase, Urine Neg (Neg); Nitrite, Urine Neg (Neg); Protein, Urine Neg (Neg); Urobilinogen, Urine NORM (Normal)
[2020-01-20 10:01] LABS: Appearance, Urine Clear (Clear); Color, Urine Yellow (P-Yellow)
[2020-01-20 10:02] LABS: Bacteria Rare /hpf; Squamous Epithelial Cells Rare /hpf (Few)
[2020-01-20] MEDS ORDERED: TIMOPTIC 0.25% BOTHEYES (12:38)
[2020-01-20] MEDS ORDERED: POLY500 PO (16:02)
--- NOTE | 2020-01-20 18:42 | NUR ---
SHIFT SUMMARY PATIENT WAS RECENTLY DISCHARGED FROM INPATIENT PSYCHIATRIC CARE ON THE December. SHE STATES AT THIS TIME SHE IS NOT CURRENTLY SUICIDAL, BUT HAS A HISTORY. SHE DOES TAKE MULTIPLE ANTIPSYCHOTICS. SHE DOES HAVE MILD PAIN IN HER ABDOMEN AND IS RUNNING ONE BAG OF FLUIDS AT 100 AN HOUR. SHE IS BLIND IN BOTH EYES BUT MOVES AROUND INDEPENDENT.
[2020-01-21 06:10] LABS: BASOPHILS ABSOLUTE AUTO 0.06 K/mm3 (0.00-0.23); BASOPHILS PERCENT AUTO 1 % (0-2); EOSINOPHILS ABSOLUTE AUTO 0.45 K/mm3 (0.00-0.68); EOSINOPHILS PERCENT AUTO 5 % (0-6); Hematocrit 37.1 % (33.0-51.0); Hemoglobin 11.9 g/dL (11.5-16.0); IMMATURE GRAN ABSOLUTE AUTO 0.03 K/mm3 (0.00-0.10); IMMATURE GRAN PERCENT AUTO 0 % (0-1); LYMPHOCYTES ABSOLUTE AUTO 2.08 K/mm3 (0.84-5.20); LYMPHOCYTES PERCENT AUTO 25 % (21-46); MONOCYTES ABSOLUTE AUTO 0.86 K/mm3 (0.16-1.47); MONOCYTES PERCENT AUTO 10 % (4-13); Mean Corpuscular HGB 29.4 pg (26.0-34.0); Mean Corpuscular HGB Conc 32.1 g/dL (31.5-36.5); Mean Corpuscular Volume 92 fL (80-100); NEUTROPHILS ABSOLUTE AUTO 4.91 K/mm3 (1.96-9.15); NEUTROPHILS PERCENT AUTO 58 % (41-73); Platelet Count 278 K/mm3 (150-400); RDW Coefficient Variation 13.2 % (11.7-14.2); RDW Standard Deviation 44.1 fL (35.1-46.3); Red Blood Cell Count 4.05 M/mm3 (3.80-5.20); White Blood Cell Count 8.39 K/mm3 (4.00-11.30)
[2020-01-21 06:28] LABS: Alanine Aminotransfer (ALT/SGP 20 U/L (12-78); Albumin, Blood 2.7 g/dL (3.4-5.0); Albumin/Globulin Ratio 0.9 (0.8-1.8); Alk Phos 64 U/L (50-136); Anion Gap 6 mmol/L (6-16); Aspartate Aminotrans (AST/SGOT 13 U/L (12-37); Bilirubin, Total 0.6 mg/dL (0.1-1.0); Blood Urea Nitrogen 7 mg/dL (8-24); Bun/Creatinine Ratio 10.3 (12.0-20.0); CO2, Blood 29 mmol/L (21-32); Calcium, Blood 7.5 mg/dL (8.5-10.1); Chloride, Blood 107 mmol/L (98-108); Creatinine, Blood 0.68 mg/dL (0.40-1.00); Glomerular Filtration Rate >60 (60-); Glucose, Blood 88 mg/dL (70-99); Potassium, Blood 3.1 mmol/L (3.5-5.5); Sodium, Blood 142 mmol/L (136-145); Total Protein, Blood 5.7 g/dL (6.4-8.2)
--- NOTE | 2020-01-21 07:56 | NUR ---
METER INSPECTOR SUMMARY Dejah had a peaceful night with her son Tushar. Complaints of pain and anxiety were resolved with roxynol and ativan. Dejah is hoping she will be able to go home with hospice (Perhaps one of her boys homes) possibly tommorow.
--- NOTE | 2020-01-21 11:22 | NUR ---
ASKED THE PATIENT ABOUT CONSENT FOR PERMISSION TO SPEAK WITH [facility] FOR HER DISCHARGE MEDICATION LIST. CURRENTLY SPEAKING TO JUAN FROM [facility] FOR HER INPATIENT DISCAHRGE PACKET FROM [facility] IN [place]. AWAITING A CALL BACK.
--- NOTE | 2020-01-21 11:47 | NUR ---
SPOKE WITH JUAN FROM [facility] AND THEY GAVE A LIST OF PATIENT'S DISCHARGE MEDICATIONS AT TIME OF DISCAHRGE THE FOLLOWING: GEODON 40 MG PO QAM WITH FOOD, PROZAC 60MG PO DAILY WELLBUTRIN 150MG PO DAILY PRAZOSIN 2MG PO BEDTIME PROPRANOLOL 10MG PO BID AND ALL MEDICAL MEDICATIONS PRESCRIBED BY PRIMARY CARE.
--- NOTE | 2020-01-21 16:37 | NUR ---
SHIFT SUMMARY NO ACUTE CONCERNS PER PATIENT. HAS DENIED ANY NEED FOR PAIN MEDICATIONS TODAY. SHE WAS GIVEN HER PSYCH MEDICATIONS THIS MORNING. SHE DENIES ANY CURRENT CONCERNS, AWAITING TO GET OUT OF THE HOSPITAL. MONITORING FOR ANY OTHER CONCERNS. ABDOMEN IS SOFT, MILDLY TENDER. SHE WAS GIVEN A CLEAR LIQUID DIET.
--- NOTE | 2020-01-21 18:47 | NUR ---
PATIENT DID HAVE A SMALL BOWEL MOVEMENT. JUST DID NOT MAKE IT TO THE COMMODE.
[2020-01-22 05:38] LABS: Anion Gap 4 mmol/L (6-16); Blood Urea Nitrogen 5 mg/dL (8-24); Bun/Creatinine Ratio 7.9 (12.0-20.0); CO2, Blood 31 mmol/L (21-32); Calcium, Blood 7.8 mg/dL (8.5-10.1); Chloride, Blood 106 mmol/L (98-108); Creatinine, Blood 0.63 mg/dL (0.40-1.00); Glomerular Filtration Rate >60 (60-); Glucose, Blood 94 mg/dL (70-99); Potassium, Blood 3.3 mmol/L (3.5-5.5); Sodium, Blood 141 mmol/L (136-145)
--- NOTE | 2020-01-22 08:22 | NUR ---
night clerk summary Patient slept well throught the night. Minimal complaints of abdominal pain not requiring medication to resolve.
[2020-01-23 06:02] LABS: Hematocrit 38.6 % (33.0-51.0); Hemoglobin 12.2 g/dL (11.5-16.0); Mean Corpuscular HGB 29.2 pg (26.0-34.0); Mean Corpuscular HGB Conc 31.6 g/dL (31.5-36.5); Mean Corpuscular Volume 92 fL (80-100); Mean Platelet Volume 9.9 fL (9.1-12.4); Platelet Count 276 K/mm3 (150-400); RDW Standard Deviation 44.2 fL (35.1-46.3); Red Blood Cell Count 4.18 M/mm3 (3.80-5.20); White Blood Cell Count 6.99 K/mm3 (4.00-11.30)
[2020-01-23 06:39] LABS: Anion Gap 5 mmol/L (6-16); Blood Urea Nitrogen 3 mg/dL (8-24); Bun/Creatinine Ratio 4.4 (12.0-20.0); CO2, Blood 31 mmol/L (21-32); Calcium, Blood 8.3 mg/dL (8.5-10.1); Chloride, Blood 105 mmol/L (98-108); Creatinine, Blood 0.68 mg/dL (0.40-1.00); Glomerular Filtration Rate >60 (60-); Glucose, Blood 93 mg/dL (70-99); Magnesium, Blood 2.1 mg/dL (1.6-2.4); Potassium, Blood 3.2 mmol/L (3.5-5.5); Sodium, Blood 141 mmol/L (136-145)
--- NOTE | 2020-01-23 07:39 | NUR ---
Patient felt well all night exclaming twice that she had no abdominal pain or nausea. Dejah did complain of some queeziness later in the evening, but not nausea, and it resolved shortly on her own. No further stool overnight. She is very anxious to go home
--- NOTE | 2020-01-23 13:34 | NUR ---
Discharged home at 1245. Picked up by caregiver. Pt verbalized understanding of the discharge instructions, and follow-ups. No changed to medications. MD notified at 1015 that patient was dizzy this AM. dizziness improved post solid food but still present. MD also notified of HTN 182/106. Okay to d/c patient per MD. No GI complaints.
== END 2020-01-23 13:01 | disposition home or self-care (01) | DRG 389 ==
LOC: ER 07:33 → MEDS 07:34 → ENPENDDIS 01-23 10:45 → MEDS 01-23 13:01
PROVIDERS: Emergency Medicine; Family Medicine; ADMIT Internal Medicine
DX: K56.600 Partial intestinal obstruction, unspecified as to cause (principal); Z68.41 Body mass index [BMI] 40.0-44.9, adult; E87.6 Hypokalemia; Q11.2 Microphthalmos; I10 Essential (primary) hypertension; E78.5 Hyperlipidemia, unspecified; F31.70 Bipolar disorder, currently in remission, most recent episode unspecified; K21.9 Gastro-esophageal reflux disease without esophagitis; R40.2412 Glasgow coma scale score 13-15, at arrival to emergency department
CPT/HCPCS: 36415; 74176; 80048; 80053; 81001; 83690; 83735; 85025; 85027; 96361; 96374; 96375; 96376; 99285-25; A9270; A9270-GY; G0378; J1170; J1650; J2405; J7030

== ENCOUNTER 2020-02-16 17:21 | Emergency (ER) | payer OTHER ==
[~2020-02-16] VITALS: Ht 154.9 cm; Wt 99.8 kg
[~2020-02-16 17:21] MED LIST changes: +POLY500 PO; +TIMOPTIC 0.25% BOTHEYES
[2020-02-16] MEDS ORDERED: PROP10 PO (20:31)
[2020-02-16] MEDS ORDERED: CYCL10 PO (20:31)
[2020-02-16] MEDS ORDERED: PROG100 PO (20:32)
[2020-02-16] MEDS ORDERED: ONDA4ODT MM (20:37)
== END 2020-02-16 20:44 | disposition home or self-care (01) ==
LOC: ER 17:21
DX: S09.90XA Unspecified injury of head, initial encounter (principal); F31.9 Bipolar disorder, unspecified; E78.5 Hyperlipidemia, unspecified; F41.9 Anxiety disorder, unspecified; I10 Essential (primary) hypertension; Z88.5 Allergy status to narcotic agent; Z88.0 Allergy status to penicillin; Z88.8 Allergy status to other drugs, medicaments and biological substances; Z88.6 Allergy status to analgesic agent; Z79.3 Long term (current) use of hormonal contraceptives; Z79.899 Other long term (current) drug therapy
CPT/HCPCS: 99283

== ENCOUNTER → 2020-04-12 | Outpatient (CLI) | payer OTHER ==
[~2020-04-12] MED LIST changes: +ATOR40TA PO; +Alphagan P5 ML BOTHEYES; +Bactrim Ds Tab1 EACH PO; +CYCL10 PO; +DOK100 M2 PO; +KETO10 PO; +LOSA50 PO; +PROG100 PO; +Prozac20 MG PO; +SENNA LAXATIVE8.6 MG PO; +SULTRIDS PO; +Sanctura20 MG PO; +TAMS.4ER PO; +TIMO10T
== END | disposition home or self-care (01) ==
LOC: LAB 11:15 → LAB SHORT 11:15
DX: R39.89 Other symptoms and signs involving the genitourinary system (principal)
CPT/HCPCS: 87086

== ENCOUNTER 2020-05-04 17:57 | Emergency (ER) | payer OTHER ==
[~2020-05-04] VITALS: Ht 154.9 cm; Wt 102.1 kg
[~2020-05-04 17:57] MED LIST changes: -ATOR40TA PO; -Alphagan P5 ML BOTHEYES; -Bactrim Ds Tab1 EACH PO; -DOK100 M2 PO; -KETO10 PO; -LOSA50 PO; -Prozac20 MG PO; -SENNA LAXATIVE8.6 MG PO; -SULTRIDS PO; -Sanctura20 MG PO; -TAMS.4ER PO; -TIMO10T
[2020-05-04 20:28] LABS: Source, Urine Clean Catch
[2020-05-04 20:31] LABS: Bilirubin, Urine Neg (Neg); Blood, Urine Neg (Neg); Glucose Qualitative, Urine Neg (Neg); Ketones, Urine Neg (Neg); Leukocyte Esterase, Urine Neg (Neg); Nitrite, Urine Pos (Neg); Protein, Urine Neg (Neg); Specific Gravity, Urine 1.005 (1.003-1.022); Urobilinogen, Urine NORM (Normal)
[2020-05-04 20:37] LABS: Appearance, Urine Clear (Clear); Color, Urine Yellow (P-Yellow)
[2020-05-04 20:39] LABS: Bacteria Few /hpf; Red Blood Cells, Urine Not Seen /hpf (0-2); Squamous Epithelial Cells Few /hpf (Few); White Blood Cells, Urine 0-2 /hpf (0-5)
[2020-05-04] MEDS ORDERED: Bactrim Ds Tab1 EACH PO (21:22)
[2020-09-29] MEDS ORDERED: TAMS.4ER PO (05:57)
[2020-09-29] MEDS ORDERED: SENNA LAXATIVE8.6 MG PO (05:57)
[2020-09-29] MEDS ORDERED: Sanctura20 MG PO (05:57)
[2020-09-29] MEDS ORDERED: DOK100 M2 PO (05:58)
[2020-09-29] MEDS ORDERED: Naltrexone HCl50 MG PO (05:59)
[2020-09-29] MEDS ORDERED: CYCL10 PO (05:59)
[2020-09-29] MEDS ORDERED: TIMO10T (06:00)
[2020-09-29] MEDS ORDERED: Alphagan P5 ML BOTHEYES (06:00)
[2020-09-29] MEDS ORDERED: ONDA4ODT MM (06:00)
[2020-09-29] MEDS ORDERED: OMEP20ER PO (06:02)
[2020-09-29] MEDS ORDERED: KETO10 PO (06:03)
[2020-09-29] MEDS ORDERED: FLUO10 PO (06:04)
[2020-09-29] MEDS ORDERED: PROP10 PO (06:06)
[2020-09-29] MEDS ORDERED: BUPR150ER PO (06:07)
[2020-09-29] MEDS ORDERED: LOSA50 PO (06:15)
[2020-09-29] MEDS ORDERED: Prozac20 MG PO (06:16)
[2020-09-29] MEDS ORDERED: ATOR40TA PO (06:16)
== END 2020-05-04 22:10 | disposition home or self-care (01) ==
LOC: ER 17:57
PROVIDERS: Physician Assistant
DX: N39.0 Urinary tract infection, site not specified (principal); Z79.899 Other long term (current) drug therapy
CPT/HCPCS: 81001; 87086; 99283; A9270

== ENCOUNTER 2020-06-06 11:10 | Emergency (ER) | payer OTHER ==
[~2020-06-06] VITALS: Ht 154.9 cm; Wt 98.9 kg
[~2020-06-06 11:10] MED LIST changes: +Bactrim Ds Tab1 EACH PO
[2020-06-06 11:36] LABS: Source, Urine Clean Catch
[2020-06-06 11:42] LABS: Appearance, Urine Clear (Clear); Bilirubin, Urine Neg (Neg); Blood, Urine Neg (Neg); Color, Urine Yellow (P-Yellow); Glucose Qualitative, Urine Neg (Neg); Ketones, Urine Neg (Neg); Leukocyte Esterase, Urine Neg (Neg); Nitrite, Urine Pos (Neg); Protein, Urine Neg (Neg); Specific Gravity, Urine 1.005 (1.003-1.022); Urobilinogen, Urine NORM (Normal)
[2020-06-06 12:09] LABS: Alanine Aminotransfer (ALT/SGP 43 U/L (12-78); Albumin, Blood 3.2 g/dL (3.4-5.0); Albumin/Globulin Ratio 0.9 (0.8-1.8); Alk Phos 73 U/L (50-136); Anion Gap 4 mmol/L (6-16); Aspartate Aminotrans (AST/SGOT 29 U/L (12-37); Bilirubin, Total 0.7 mg/dL (0.1-1.0); Blood Urea Nitrogen 5 mg/dL (8-24); Bun/Creatinine Ratio 8.4 (12.0-20.0); CO2, Blood 28 mmol/L (21-32); Calcium, Blood 8.4 mg/dL (8.5-10.1); Chloride, Blood 104 mmol/L (98-108); Globulin, Blood 3.6 g/dL (2.2-4.0); Glomerular Filtration Rate >60 (60-); Glucose, Blood 121 mg/dL (70-99); Potassium, Blood 4.8 mmol/L (3.5-5.5); Sodium, Blood 136 mmol/L (136-145); Total Protein, Blood 6.8 g/dL (6.4-8.2)
[2020-06-06 12:12] LABS: Red Blood Cells, Urine 0-2 /hpf (0-2); Squamous Epithelial Cells Few /hpf (Few); White Blood Cells, Urine 0-2 /hpf (0-5)
[2020-06-06 12:13] LABS: Bacteria Mod /hpf
[2020-06-06 12:36] LABS: BASOPHILS ABSOLUTE AUTO 0.05 K/mm3 (0.00-0.23); BASOPHILS PERCENT AUTO 1 % (0-2); EOSINOPHILS ABSOLUTE AUTO 0.24 K/mm3 (0.00-0.68); EOSINOPHILS PERCENT AUTO 3 % (0-6); Hematocrit 37.6 % (33.0-51.0); Hemoglobin 12.2 g/dL (11.5-16.0); IMMATURE GRAN ABSOLUTE AUTO 0.02 K/mm3 (0.00-0.10); IMMATURE GRAN PERCENT AUTO 0 % (0-1); LYMPHOCYTES ABSOLUTE AUTO 2.05 K/mm3 (0.84-5.20); LYMPHOCYTES PERCENT AUTO 25 % (21-46); MONOCYTES ABSOLUTE AUTO 0.79 K/mm3 (0.16-1.47); MONOCYTES PERCENT AUTO 10 % (4-13); Mean Corpuscular HGB 30.8 pg (26.0-34.0); Mean Corpuscular HGB Conc 32.4 g/dL (31.5-36.5); Mean Corpuscular Volume 95 fL (80-100); Mean Platelet Volume 9.8 fL (9.1-12.4); NEUTROPHILS ABSOLUTE AUTO 5.14 K/mm3 (1.96-9.15); NEUTROPHILS PERCENT AUTO 62 % (41-73); Platelet Count 266 K/mm3 (150-400); RDW Coefficient Variation 14.1 % (11.7-14.2); RDW Standard Deviation 48.5 fL (35.1-46.3); Red Blood Cell Count 3.96 M/mm3 (3.80-5.20); White Blood Cell Count 8.29 K/mm3 (4.00-11.30)
[2020-06-06] MEDS ORDERED: SULTRIDS PO (12:46)
[2020-09-29] MEDS ORDERED: SENNA LAXATIVE8.6 MG PO (05:57)
[2020-09-29] MEDS ORDERED: TAMS.4ER PO (05:57)
[2020-09-29] MEDS ORDERED: Sanctura20 MG PO (05:57)
[2020-09-29] MEDS ORDERED: DOK100 M2 PO (05:58)
[2020-09-29] MEDS ORDERED: CYCL10 PO (05:59)
[2020-09-29] MEDS ORDERED: Naltrexone HCl50 MG PO (05:59)
[2020-09-29] MEDS ORDERED: TIMO10T (06:00)
[2020-09-29] MEDS ORDERED: Alphagan P5 ML BOTHEYES (06:00)
[2020-09-29] MEDS ORDERED: ONDA4ODT MM (06:00)
[2020-09-29] MEDS ORDERED: OMEP20ER PO (06:02)
[2020-09-29] MEDS ORDERED: KETO10 PO (06:03)
[2020-09-29] MEDS ORDERED: FLUO10 PO (06:04)
[2020-09-29] MEDS ORDERED: PROP10 PO (06:06)
[2020-09-29] MEDS ORDERED: BUPR150ER PO (06:07)
[2020-09-29] MEDS ORDERED: LOSA50 PO (06:15)
[2020-09-29] MEDS ORDERED: ATOR40TA PO (06:16)
[2020-09-29] MEDS ORDERED: Prozac20 MG PO (06:16)
== END 2020-06-06 13:00 | disposition home or self-care (01) ==
LOC: ER 11:10
PROVIDERS: Physician Assistant
DX: N39.0 Urinary tract infection, site not specified (principal); E78.5 Hyperlipidemia, unspecified; I10 Essential (primary) hypertension; Z79.899 Other long term (current) drug therapy
CPT/HCPCS: 36415; 80053; 81001; 85025; 87086; 96372; 99284; A9270; J1885

== ENCOUNTER → 2020-06-27 | Outpatient (CLI) | payer OTHER ==
[~2020-06-27] MED LIST changes: +SULTRIDS PO
== END | disposition home or self-care (01) ==
LOC: LAB SHORT 15:37
DX: Z11.3 Encounter for screening for infections with a predominantly sexual mode of transmission (principal)
CPT/HCPCS: 87491; 87591

== ENCOUNTER → 2020-09-04 | Outpatient (CLI) | payer OTHER ==
[~2020-09-04] MED LIST changes: +ATOR40TA PO; +Alphagan P5 ML BOTHEYES; +DOK100 M2 PO; +KETO10 PO; +LOSA50 PO; +Prozac20 MG PO; +Pyridium100 MG PO; +SENNA LAXATIVE8.6 MG PO; +Sanctura20 MG PO; +TAMS.4ER PO; +TIMO10T
== END | disposition home or self-care (01) ==
LOC: LAB SHORT 13:30 → LAB 13:30
DX: R39.15 Urgency of urination (principal)
CPT/HCPCS: 87086

== ENCOUNTER 2020-10-07 18:38 | Observation (INO) | payer OTHER ==
[~2020-10-07] VITALS: Ht 154.9 cm; Wt 102.1 kg
[~2020-10-07 18:38] MED LIST changes: -Pyridium100 MG PO
[2020-10-07 19:32] LABS: Source, Urine Clean Catch
[2020-10-07 19:36] LABS: Appearance, Urine Clear (Clear); BASOPHILS ABSOLUTE AUTO 0.06 K/mm3 (0.00-0.23); BASOPHILS PERCENT AUTO 1 % (0-2); Bilirubin, Urine Neg (Neg); Blood, Urine Neg (Neg); Color, Urine Yellow (P-Yellow); EOSINOPHILS ABSOLUTE AUTO 0.21 K/mm3 (0.00-0.68); EOSINOPHILS PERCENT AUTO 2 % (0-6); Glucose Qualitative, Urine Neg (Neg); Hematocrit 42.9 % (33.0-51.0); Hemoglobin 13.9 g/dL (11.5-16.0); IMMATURE GRAN ABSOLUTE AUTO 0.04 K/mm3 (0.00-0.10); IMMATURE GRAN PERCENT AUTO 0 % (0-1); Ketones, Urine Neg (Neg); LYMPHOCYTES ABSOLUTE AUTO 2.16 K/mm3 (0.84-5.20); LYMPHOCYTES PERCENT AUTO 18 % (21-46); Leukocyte Esterase, Urine Neg (Neg); MONOCYTES ABSOLUTE AUTO 1.22 K/mm3 (0.16-1.47); MONOCYTES PERCENT AUTO 10 % (4-13); Mean Corpuscular HGB 29.4 pg (26.0-34.0); Mean Corpuscular HGB Conc 32.4 g/dL (31.5-36.5); Mean Corpuscular Volume 91 fL (80-100); Mean Platelet Volume 10.1 fL (9.1-12.4); NEUTROPHILS ABSOLUTE AUTO 8.16 K/mm3 (1.96-9.15); NEUTROPHILS PERCENT AUTO 69 % (41-73); Nitrite, Urine Pos (Neg); Platelet Count 304 K/mm3 (150-400); Protein, Urine Neg (Neg); RDW Coefficient Variation 12.9 % (11.7-14.2); RDW Standard Deviation 42.4 fL (35.1-46.3); Red Blood Cell Count 4.72 M/mm3 (3.80-5.20); Specific Gravity, Urine 1.005 (1.003-1.022); Urobilinogen, Urine 1+ (Normal); White Blood Cell Count 11.85 K/mm3 (4.00-11.30)
[2020-10-07 19:47] LABS: U Amphetamine Screen Not Detected; U Methamphetamine Screen Not Detected
[2020-10-07 19:48] LABS: U Barbituate Screen Not Detected; U Benzodiazapine Screen DETECTED; U Buprenorphine Screen Not Detected; U Cannabinoids Screen Not Detected; U Cocaine Screen Not Detected; U Methadone Screen Not Detected; U Opiates Screen Not Detected; U Oxycodone Screen Not Detected; U Phencyclidine Screen Not Detected; U Propoxyphene Screen Not Detected
[2020-10-07 19:49] LABS: Bacteria Few /hpf; Red Blood Cells, Urine Not Seen /hpf (0-2); Squamous Epithelial Cells Few /hpf (Few); White Blood Cells, Urine Not Seen /hpf (0-5)
[2020-10-07 20:02] LABS: Alanine Aminotransfer (ALT/SGP 22 U/L (12-78); Albumin, Blood 3.3 g/dL (3.4-5.0); Albumin/Globulin Ratio 0.8 (0.8-1.8); Alk Phos 81 U/L (50-136); Anion Gap 3 mmol/L (6-16); Aspartate Aminotrans (AST/SGOT 14 U/L (12-37); Bilirubin, Total 0.4 mg/dL (0.1-1.0); Blood Urea Nitrogen 7 mg/dL (8-24); Bun/Creatinine Ratio 10.9 (12.0-20.0); CO2, Blood 27 mmol/L (21-32); Calcium, Blood 8.9 mg/dL (8.5-10.1); Chloride, Blood 107 mmol/L (98-108); Creatinine, Blood 0.64 mg/dL (0.40-1.00); Ethanol (Alcohol), Blood, Med <3 mg/dL; Glomerular Filtration Rate >60 (60-); Glucose, Blood 92 mg/dL (70-99); Potassium, Blood 3.9 mmol/L (3.5-5.5); Salicylate <1.7 mg/dL (2.8-20.0); Sodium, Blood 137 mmol/L (136-145); Total Protein, Blood 7.3 g/dL (6.4-8.2)
[2020-10-07 20:11] LABS: Acetaminophen, Random <2.0 ug/mL (10.0-30.0)
[2020-10-08 03:04] LABS: SARS-Cov-2 (COVID-19) PCR, MMC NEGATIVE (NEGATIVE)
[2020-10-08] MEDS ORDERED: Pyridium100 MG PO (14:54)
== END 2020-10-08 15:29 | disposition home or self-care (01) ==
LOC: ER 18:38 → EOR 18:39 → ER 10-08 01:47 → EOR 10-08 01:47
PROVIDERS: Student in an Organized Health Care Education/Training Program; ADMIT Emergency Medicine
DX: F31.30 Bipolar disorder, current episode depressed, mild or moderate severity, unspecified (principal); R39.15 Urgency of urination; E78.5 Hyperlipidemia, unspecified; H54.7 Unspecified visual loss; Q11.2 Microphthalmos; Q87.89 Other specified congenital malformation syndromes, not elsewhere classified; Z20.822 Contact with and (suspected) exposure to COVID-19; Z88.5 Allergy status to narcotic agent; Z88.0 Allergy status to penicillin; Z88.8 Allergy status to other drugs, medicaments and biological substances; Z88.6 Allergy status to analgesic agent; Z91.5 Personal history of self-harm
CPT/HCPCS: 51798; 80053; 81001; 84436; 84443; 85025; 87086; 99285; A9270; G0378; G0480; Q3014; U0004

== ENCOUNTER 2021-12-20 14:40 | Emergency (ER) | payer OTHER ==
[~2021-12-20] VITALS: Ht 154.9 cm; Wt 97.5 kg
[~2021-12-20 14:40] MED LIST changes: +Pyridium100 MG PO
[2021-12-20] MEDS ORDERED: PREDNISOLONE ACE5 ML OP (18:04)
[2021-12-20] MEDS ORDERED: ERYT.5TO RIGHTEYE (18:05)
[2021-12-21] MEDS ORDERED: Diamox500 MG PO (13:35)
== END 2021-12-20 18:20 | disposition home or self-care (01) ==
LOC: ER 14:40
DX: H40.9 Unspecified glaucoma (principal); I10 Essential (primary) hypertension; E78.5 Hyperlipidemia, unspecified; Z79.899 Other long term (current) drug therapy
CPT/HCPCS: 99283; A9270

== ENCOUNTER 2022-07-01 20:08 | Observation (INO) | payer OTHER ==
[~2022-07-01] VITALS: Ht 162.6 cm; Wt 113.4 kg
[~2022-07-01 20:08] MED LIST changes: +CEPH500 PO; +Diamox500 MG PO; +ERYT.5TO RIGHTEYE; +PREDNISOLONE ACE5 ML OP
[2022-07-01] MEDS ORDERED: ACULAR5 ML (20:59)
[2022-07-01] MEDS ORDERED: TIMO.25OPS BOTHEYES (21:00)
[2022-07-01 21:11] LABS: BASOPHILS ABSOLUTE AUTO 0.05 K/mm3 (0.00-0.23); BASOPHILS PERCENT AUTO 1 % (0-2); EOSINOPHILS ABSOLUTE AUTO 0.36 K/mm3 (0.00-0.68); EOSINOPHILS PERCENT AUTO 3 % (0-6); Hematocrit 38.3 % (33.0-51.0); Hemoglobin 12.9 g/dL (11.5-16.0); IMMATURE GRAN ABSOLUTE AUTO 0.04 K/mm3 (0.00-0.10); IMMATURE GRAN PERCENT AUTO 0 % (0-1); LYMPHOCYTES ABSOLUTE AUTO 2.76 K/mm3 (0.84-5.20); LYMPHOCYTES PERCENT AUTO 25 % (21-46); MONOCYTES ABSOLUTE AUTO 1.16 K/mm3 (0.16-1.47); MONOCYTES PERCENT AUTO 11 % (4-13); Mean Corpuscular HGB 29.8 pg (26.0-34.0); Mean Corpuscular HGB Conc 33.7 g/dL (31.5-36.5); Mean Corpuscular Volume 89 fL (80-100); Mean Platelet Volume 10.1 fL (9.1-12.4); NEUTROPHILS ABSOLUTE AUTO 6.54 K/mm3 (1.96-9.15); NEUTROPHILS PERCENT AUTO 60 % (41-73); Platelet Count 265 K/mm3 (150-400); RDW Coefficient Variation 12.5 % (11.7-14.2); RDW Standard Deviation 41.1 fL (35.1-46.3); Red Blood Cell Count 4.33 M/mm3 (3.80-5.20); White Blood Cell Count 10.91 K/mm3 (4.00-11.30)
[2022-07-01 21:21] LABS: Source, Urine Clean Catch
[2022-07-01 21:28] LABS: Ethanol (Alcohol), Blood, Med <3 mg/dL; Salicylate <1.7 mg/dL (2.8-20.0)
[2022-07-01 21:30] LABS: Appearance, Urine Clear (Clear); Bilirubin, Urine Neg (Neg); Blood, Urine Neg (Neg); Color, Urine Yellow (P-Yellow); Glucose Qualitative, Urine Neg (Neg); Ketones, Urine Neg (Neg); Leukocyte Esterase, Urine Neg (Neg); Nitrite, Urine Neg (Neg); Protein, Urine Neg (Neg); Urobilinogen, Urine NORM (Normal)
[2022-07-01 21:33] LABS: Alanine Aminotransfer (ALT/SGP 30 U/L (12-78); Albumin, Blood 3.1 g/dL (3.4-5.0); Albumin/Globulin Ratio 0.9 (0.8-1.8); Alk Phos 91 U/L (50-136); Anion Gap Unable to Calculate mmol/L (6-16); Aspartate Aminotrans (AST/SGOT 14 U/L (12-37); Bilirubin, Total 0.3 mg/dL (0.1-1.0); Blood Urea Nitrogen 8 mg/dL (8-24); Bun/Creatinine Ratio 10.9 (12.0-20.0); CO2, Blood 31 mmol/L (21-32); Calcium, Blood 8.5 mg/dL (8.5-10.1); Chloride, Blood 106 mmol/L (98-108); Creatinine, Blood 0.73 mg/dL (0.40-1.00); Globulin, Blood 3.6 g/dL (2.2-4.0); Glomerular Filtration Rate 100 (60-); Glucose, Blood 86 mg/dL (70-99); Potassium, Blood 3.4 mmol/L (3.5-5.5); Sodium, Blood 136 mmol/L (136-145); Total Protein, Blood 6.7 g/dL (6.4-8.2)
[2022-07-01 21:34] LABS: Acetaminophen, Random <2.0 ug/mL (10.0-30.0)
[2022-07-01 21:46] LABS: U Amphetamine Screen Not Detected; U Barbituate Screen Not Detected; U Benzodiazapine Screen Not Detected; U Buprenorphine Screen Not Detected; U Cannabinoids Screen Not Detected; U Cocaine Screen Not Detected; U Methadone Screen Not Detected; U Methamphetamine Screen Not Detected; U Opiates Screen Not Detected; U Oxycodone Screen Not Detected; U Phencyclidine Screen Not Detected; U Propoxyphene Screen Not Detected
[2022-07-02] MEDS ORDERED: PRAZ2 PO (21:34)
[2022-07-02] MEDS ORDERED: PROG100 PO (21:35)
[2022-07-07 15:28] LABS: Influenza A, PCR NEGATIVE (NEGATIVE); Influenza B, PCR NEGATIVE (NEGATIVE); Resp Syncytial Virus, PCR NEGATIVE (NEGATIVE); SARS-Cov-2 (COVID-19) PCR, MMC NEGATIVE (NEGATIVE)
[2022-07-07 19:45] VITALS: BP 185/107
== END 2022-07-08 13:00 ==
LOC: ER 20:08 → EOR 20:09 → UNDODEPER 07-06 00:23 → EOR 07-08 13:00
PROVIDERS: ADMIT Student in an Organized Health Care Education/Training Program
DX: F33.3 Major depressive disorder, recurrent, severe with psychotic symptoms (principal); F43.12 Post-traumatic stress disorder, chronic; E78.5 Hyperlipidemia, unspecified; Z88.5 Allergy status to narcotic agent; Z88.8 Allergy status to other drugs, medicaments and biological substances; Z88.0 Allergy status to penicillin; Z79.899 Other long term (current) drug therapy; Z20.822 Contact with and (suspected) exposure to COVID-19
CPT/HCPCS: 0241U; 80053; 81003; 81025; 85025; 93005; 93010; 99285-25; A9270; G0378; G0480; Q3014

== ENCOUNTER → 2022-07-30 | Outpatient (CLI) | payer OTHER ==
[~2022-07-30] MED LIST changes: +ACULAR5 ML; +TIMO.25OPS BOTHEYES
[2022-07-30 14:31] LABS: BASOPHILS ABSOLUTE AUTO 0.03 K/mm3 (0.00-0.23); BASOPHILS PERCENT AUTO 0 % (0-2); EOSINOPHILS ABSOLUTE AUTO 0.21 K/mm3 (0.00-0.68); EOSINOPHILS PERCENT AUTO 2 % (0-6); Hematocrit 39.7 % (33.0-51.0); Hemoglobin 13.2 g/dL (11.5-16.0); IMMATURE GRAN ABSOLUTE AUTO 0.03 K/mm3 (0.00-0.10); IMMATURE GRAN PERCENT AUTO 0 % (0-1); LYMPHOCYTES ABSOLUTE AUTO 1.72 K/mm3 (0.84-5.20); LYMPHOCYTES PERCENT AUTO 19 % (21-46); MONOCYTES ABSOLUTE AUTO 0.86 K/mm3 (0.16-1.47); MONOCYTES PERCENT AUTO 10 % (4-13); Mean Corpuscular HGB 29.9 pg (26.0-34.0); Mean Corpuscular HGB Conc 33.2 g/dL (31.5-36.5); Mean Corpuscular Volume 90 fL (80-100); Mean Platelet Volume 10.2 fL (9.1-12.4); NEUTROPHILS ABSOLUTE AUTO 6.19 K/mm3 (1.96-9.15); NEUTROPHILS PERCENT AUTO 69 % (41-73); Platelet Count 266 K/mm3 (150-400); RDW Coefficient Variation 12.5 % (11.7-14.2); RDW Standard Deviation 41.7 fL (35.1-46.3); Red Blood Cell Count 4.41 M/mm3 (3.80-5.20); White Blood Cell Count 9.04 K/mm3 (4.00-11.30)
[2022-07-30 16:54] LABS: Albumin, Blood 3.2 g/dL (3.4-5.0); Albumin/Globulin Ratio 0.9 (0.8-1.8); Bilirubin, Total 0.6 mg/dL (0.1-1.0); Bun/Creatinine Ratio 13.8 (12.0-20.0); Calcium, Blood 8.5 mg/dL (8.5-10.1); Creatinine, Blood 0.65 mg/dL (0.40-1.00); Globulin, Blood 3.5 g/dL (2.2-4.0); Potassium, Blood 3.8 mmol/L (3.5-5.5); Total Protein, Blood 6.7 g/dL (6.4-8.2)
== END ==
LOC: LAB 13:24 → LAB SHORT 13:24
PROVIDERS: Student in an Organized Health Care Education/Training Program
DX: R42 Dizziness and giddiness (principal)
CPT/HCPCS: 80053; 85025

== ENCOUNTER 2022-10-04 18:04 | Emergency (ER) | payer OTHER ==
[~2022-10-04] VITALS: Ht 154.9 cm; Wt 101.6 kg
[2022-10-04 18:44] LABS: BASOPHILS ABSOLUTE AUTO 0.05 K/mm3 (0.00-0.23); BASOPHILS PERCENT AUTO 0 % (0-2); EOSINOPHILS ABSOLUTE AUTO 0.51 K/mm3 (0.00-0.68); EOSINOPHILS PERCENT AUTO 4 % (0-6); Hematocrit 41.6 % (33.0-51.0); IMMATURE GRAN ABSOLUTE AUTO 0.04 K/mm3 (0.00-0.10); IMMATURE GRAN PERCENT AUTO 0 % (0-1); LYMPHOCYTES ABSOLUTE AUTO 1.04 K/mm3 (0.84-5.20); LYMPHOCYTES PERCENT AUTO 9 % (21-46); MONOCYTES ABSOLUTE AUTO 1.14 K/mm3 (0.16-1.47); MONOCYTES PERCENT AUTO 10 % (4-13); Mean Corpuscular HGB Conc 33.7 g/dL (31.5-36.5); Mean Corpuscular Volume 89 fL (80-100); Mean Platelet Volume 10.1 fL (9.1-12.4); NEUTROPHILS ABSOLUTE AUTO 8.79 K/mm3 (1.96-9.15); NEUTROPHILS PERCENT AUTO 76 % (41-73); Platelet Count 248 K/mm3 (150-400); RDW Coefficient Variation 12.4 % (11.7-14.2); RDW Standard Deviation 40.6 fL (35.1-46.3); Red Blood Cell Count 4.67 M/mm3 (3.80-5.20); White Blood Cell Count 11.57 K/mm3 (4.00-11.30)
[2022-10-04 19:08] LABS: Albumin, Blood 3.5 g/dL (3.4-5.0); Bilirubin, Total 0.8 mg/dL (0.1-1.0); Bun/Creatinine Ratio 13.1 (12.0-20.0); Calcium, Blood 8.6 mg/dL (8.5-10.1); Creatinine, Blood 0.69 mg/dL (0.40-1.00); Globulin, Blood 3.4 g/dL (2.2-4.0); Potassium, Blood 3.9 mmol/L (3.5-5.5); Total Protein, Blood 6.9 g/dL (6.4-8.2)
[2022-10-04 19:15] LABS: Influenza A, PCR NEGATIVE (NEGATIVE); Influenza B, PCR NEGATIVE (NEGATIVE); Resp Syncytial Virus, PCR NEGATIVE (NEGATIVE); SARS-Cov-2 (COVID-19) PCR, MMC NEGATIVE (NEGATIVE)
[2022-10-04 19:36] VITALS: BP 150/82
[2022-10-04] MEDS ORDERED: PRED20 PO (21:11)
[2022-10-04] MEDS ORDERED: ALBU90OI INH (21:11)
== END 2022-10-04 21:52 | disposition home or self-care (01) ==
LOC: ER 18:04
PROVIDERS: Emergency Medicine
DX: J06.9 Acute upper respiratory infection, unspecified (principal); J18.9 Pneumonia, unspecified organism; I10 Essential (primary) hypertension; E78.5 Hyperlipidemia, unspecified; Z20.822 Contact with and (suspected) exposure to COVID-19; Z88.5 Allergy status to narcotic agent; Z88.0 Allergy status to penicillin; Z88.8 Allergy status to other drugs, medicaments and biological substances; Z88.6 Allergy status to analgesic agent; Z79.52 Long term (current) use of systemic steroids; Z79.899 Other long term (current) drug therapy
CPT/HCPCS: 0241U; 71046; 80053; 85025; 99283-25

== ENCOUNTER 2023-07-03 18:22 | Observation (INO) | payer OTHER ==
[~2023-07-03] VITALS: Ht 154.9 cm; Wt 102.1 kg
[~2023-07-03 18:22] MED LIST changes: +ALBU90OI INH; +Colace100 MG PO; -DOK100 M2 PO; +PRED20 PO
[2023-07-03 18:33] VITALS: BP 174/113
[2023-07-03] MEDS ORDERED: Methazolamide50 MG PO (18:54)
[2023-07-03] MEDS ORDERED: PRAZ2 PO (18:55)
[2023-07-03] MEDS ORDERED: PRAZ5 PO (18:56)
[2023-07-03 19:02] LABS: BASOPHILS ABSOLUTE AUTO 0.05 K/mm3 (0.00-0.23); BASOPHILS PERCENT AUTO 0 % (0-2); EOSINOPHILS ABSOLUTE AUTO 0.44 K/mm3 (0.00-0.68); EOSINOPHILS PERCENT AUTO 4 % (0-6); Hematocrit 40.3 % (33.0-51.0); Hemoglobin 13.3 g/dL (11.5-16.0); IMMATURE GRAN ABSOLUTE AUTO 0.04 K/mm3 (0.00-0.10); IMMATURE GRAN PERCENT AUTO 0 % (0-1); LYMPHOCYTES ABSOLUTE AUTO 2.71 K/mm3 (0.84-5.20); LYMPHOCYTES PERCENT AUTO 22 % (21-46); MONOCYTES ABSOLUTE AUTO 1.07 K/mm3 (0.16-1.47); MONOCYTES PERCENT AUTO 9 % (4-13); Mean Corpuscular HGB 29.7 pg (26.0-34.0); Mean Corpuscular Volume 90 fL (80-100); Mean Platelet Volume 10.2 fL (9.1-12.4); NEUTROPHILS PERCENT AUTO 66 % (41-73); Platelet Count 291 K/mm3 (150-400); RDW Coefficient Variation 13.4 % (11.7-14.2); RDW Standard Deviation 44.5 fL (35.1-46.3); Red Blood Cell Count 4.48 M/mm3 (3.80-5.20); White Blood Cell Count 12.61 K/mm3 (4.00-11.30)
[2023-07-03] MEDS ORDERED: TRAZ50 PO (19:03)
[2023-07-03] MEDS ORDERED: VRAYLAR4.5 MG PO (19:04)
[2023-07-03 19:24] LABS: Albumin, Blood 3.2 g/dL (3.4-5.0); Albumin/Globulin Ratio 0.9 (0.8-1.8); Bilirubin, Total 0.2 mg/dL (0.1-1.0); Bun/Creatinine Ratio 15.4 (12.0-20.0); Calcium, Blood 8.7 mg/dL (8.5-10.1); Creatinine, Blood 0.71 mg/dL (0.40-1.00); Globulin, Blood 3.6 g/dL (2.2-4.0); Potassium, Blood 3.2 mmol/L (3.5-5.5); Total Protein, Blood 6.8 g/dL (6.4-8.2)
[2023-07-04] MEDS ORDERED: PRAZ1 PO ×2 (10:55→14:14)
== END 2023-07-04 16:04 | disposition home or self-care (01) ==
LOC: ER 18:22 → EOR 18:23
PROVIDERS: ADMIT Emergency Medicine
DX: F33.3 Major depressive disorder, recurrent, severe with psychotic symptoms (principal); F43.12 Post-traumatic stress disorder, chronic; E78.5 Hyperlipidemia, unspecified; Z88.5 Allergy status to narcotic agent; Z88.0 Allergy status to penicillin; Z88.8 Allergy status to other drugs, medicaments and biological substances; Z79.899 Other long term (current) drug therapy
CPT/HCPCS: 36415; 80053; 85025; 99285; G0378

== ENCOUNTER 2023-09-02 08:18 | Emergency (ER) | payer OTHER ==
[~2023-09-02] VITALS: Ht 154.9 cm; Wt 106.6 kg
[~2023-09-02 08:18] MED LIST changes: +Methazolamide50 MG PO; +PRAZ5 PO; +TRAZ50 PO; +VRAYLAR4.5 MG PO
[2023-09-02 08:58] LABS: BASOPHILS ABSOLUTE AUTO 0.03 K/mm3 (0.00-0.23); BASOPHILS PERCENT AUTO 0 % (0-2); EOSINOPHILS ABSOLUTE AUTO 0.29 K/mm3 (0.00-0.68); EOSINOPHILS PERCENT AUTO 4 % (0-6); Hematocrit 39.2 % (33.0-51.0); IMMATURE GRAN ABSOLUTE AUTO 0.03 K/mm3 (0.00-0.10); IMMATURE GRAN PERCENT AUTO 0 % (0-1); LYMPHOCYTES ABSOLUTE AUTO 1.58 K/mm3 (0.84-5.20); LYMPHOCYTES PERCENT AUTO 20 % (21-46); MONOCYTES ABSOLUTE AUTO 0.63 K/mm3 (0.16-1.47); MONOCYTES PERCENT AUTO 8 % (4-13); Mean Corpuscular HGB Conc 33.2 g/dL (31.5-36.5); Mean Corpuscular Volume 88 fL (80-100); NEUTROPHILS ABSOLUTE AUTO 5.23 K/mm3 (1.96-9.15); NEUTROPHILS PERCENT AUTO 67 % (41-73); Platelet Count 276 K/mm3 (150-400); RDW Coefficient Variation 12.8 % (11.7-14.2); Red Blood Cell Count 4.48 M/mm3 (3.80-5.20); White Blood Cell Count 7.79 K/mm3 (4.00-11.30)
[2023-09-02 09:26] LABS: Albumin, Blood 3.2 g/dL (3.4-5.0); Albumin/Globulin Ratio 0.9 (0.8-1.8); Bilirubin, Total 0.6 mg/dL (0.1-1.0); Bun/Creatinine Ratio 10.2 (12.0-20.0); Calcium, Blood 8.7 mg/dL (8.5-10.1); Creatinine, Blood 0.59 mg/dL (0.40-1.00); Globulin, Blood 3.6 g/dL (2.2-4.0); Potassium, Blood 3.4 mmol/L (3.5-5.5); Total Protein, Blood 6.8 g/dL (6.4-8.2)
[2023-09-02] MEDS ORDERED: IBUP800 PO (09:59)
[2023-09-02 10:00] VITALS: BP 195/97
== END 2023-09-02 10:14 | disposition home or self-care (01) ==
LOC: ER 08:18
PROVIDERS: Emergency Medicine
DX: R07.89 Other chest pain (principal); E78.5 Hyperlipidemia, unspecified; Z88.5 Allergy status to narcotic agent; Z88.0 Allergy status to penicillin; Z88.8 Allergy status to other drugs, medicaments and biological substances; Z79.899 Other long term (current) drug therapy
CPT/HCPCS: 71045; 80053; 84484; 85025; 93005; 93010; 99285-25

== ENCOUNTER 2023-09-04 14:03 | Emergency (ER) | payer OTHER ==
[~2023-09-04] VITALS: Ht 154.9 cm; Wt 105.2 kg
[~2023-09-04 14:03] MED LIST changes: +IBUP800 PO
[2023-09-04 14:30] VITALS: BP 192/114
[2023-09-04] MEDS ORDERED: HyDROXyzine HCl 25 MG Tab PO ONE (14:40)
[2023-09-04] MEDS ORDERED: LORazepam 1 MG Tab PO ONE (15:55)
[2023-09-04] MEDS ORDERED: HYDHCL25 PO (16:05)
== END 2023-09-04 16:31 | disposition home or self-care (01) ==
LOC: ER 14:03
DX: F41.0 Panic disorder [episodic paroxysmal anxiety] (principal); Z88.5 Allergy status to narcotic agent; Z88.8 Allergy status to other drugs, medicaments and biological substances; Z88.0 Allergy status to penicillin; Z79.899 Other long term (current) drug therapy; E78.5 Hyperlipidemia, unspecified; I10 Essential (primary) hypertension
CPT/HCPCS: 99283; A9270

== ENCOUNTER 2023-10-05 05:15 | Emergency (ER) | payer OTHER ==
[~2023-10-05] VITALS: Ht 154.9 cm; Wt 105.2 kg
[~2023-10-05 05:15] MED LIST changes: +HYDHCL25 PO
[2023-10-05 05:43] LABS: BASOPHILS ABSOLUTE AUTO 0.06 K/mm3 (0.00-0.23); BASOPHILS PERCENT AUTO 0 % (0-2); EOSINOPHILS ABSOLUTE AUTO 0.27 K/mm3 (0.00-0.68); EOSINOPHILS PERCENT AUTO 2 % (0-6); Hematocrit 39.4 % (33.0-51.0); Hemoglobin 13.1 g/dL (11.5-16.0); IMMATURE GRAN ABSOLUTE AUTO 0.07 K/mm3 (0.00-0.10); IMMATURE GRAN PERCENT AUTO 0 % (0-1); LYMPHOCYTES ABSOLUTE AUTO 1.16 K/mm3 (0.84-5.20); LYMPHOCYTES PERCENT AUTO 7 % (21-46); MONOCYTES ABSOLUTE AUTO 1.08 K/mm3 (0.16-1.47); MONOCYTES PERCENT AUTO 6 % (4-13); Mean Corpuscular HGB 28.9 pg (26.0-34.0); Mean Corpuscular HGB Conc 33.2 g/dL (31.5-36.5); Mean Corpuscular Volume 87 fL (80-100); Mean Platelet Volume 10.4 fL (9.1-12.4); NEUTROPHILS ABSOLUTE AUTO 14.22 K/mm3 (1.96-9.15); NEUTROPHILS PERCENT AUTO 84 % (41-73); Platelet Count 285 K/mm3 (150-400); RDW Coefficient Variation 13.1 % (11.7-14.2); RDW Standard Deviation 40.8 fL (35.1-46.3); Red Blood Cell Count 4.53 M/mm3 (3.80-5.20); White Blood Cell Count 16.86 K/mm3 (4.00-11.30)
[2023-10-05 05:53] LABS: Albumin, Blood 3.3 g/dL (3.4-5.0); Albumin/Globulin Ratio 0.9 (0.8-1.8); Bilirubin, Total 0.7 mg/dL (0.1-1.0); Bun/Creatinine Ratio 13.2 (12.0-20.0); Calcium, Blood 8.3 mg/dL (8.5-10.1); Creatinine, Blood 0.61 mg/dL (0.40-1.00); Globulin, Blood 3.7 g/dL (2.2-4.0); Potassium, Blood 3.9 mmol/L (3.5-5.5)
[2023-10-05] MEDS ORDERED: Ketorolac Tromethamine 30mg Vial IV ONE (06:45)
[2023-10-05] MEDS ORDERED: Ondansetron HCl 2 MG / ML 2ML Vial IV ONE (06:45)
[2023-10-05] MEDS ORDERED: NS 1,000 ML IV SCH (06:45)
[2023-10-05 06:48] LABS: Source, Urine Clean Catch
[2023-10-05 06:56] LABS: Bilirubin, Urine Neg (Neg); Blood, Urine Neg (Neg); Glucose Qualitative, Urine Neg (Neg); Ketones, Urine Neg (Neg); Leukocyte Esterase, Urine 2+ (Neg); Nitrite, Urine Neg (Neg); Protein, Urine Neg (Neg); Urobilinogen, Urine NORM (Normal)
[2023-10-05 07:02] LABS: Appearance, Urine Clear (Clear); Color, Urine Yellow (P-Yellow)
[2023-10-05 07:04] LABS: Bacteria Rare /hpf; Red Blood Cells, Urine Not Seen /hpf (0-2); Squamous Epithelial Cells Few /hpf (Few)
[2023-10-05] MEDS ORDERED: Metoclopramide HCl 5MG / ML 2ML Vial IV ONE (08:30)
[2023-10-05] MEDS ORDERED: DiphenhydrAMINE HCl 50 MG/ML 1ML Vial IV ONE (08:30)
[2023-10-05 08:40] VITALS: BP 107/58
[2023-10-05] MEDS ORDERED: CEFD300 PO (09:30)
[2023-10-05] MEDS ORDERED: ONDA4ODT MM (09:30)
[2023-10-05] MEDS ORDERED: Pyridium100 MG PO (09:30)
[2023-10-05] MEDS ORDERED: Cefdinir 300 MG Cap PO ONE (09:30)
== END 2023-10-05 10:54 | disposition home or self-care (01) ==
LOC: ER 05:15
PROVIDERS: Emergency Medicine; Student in an Organized Health Care Education/Training Program
DX: N39.0 Urinary tract infection, site not specified (principal); I10 Essential (primary) hypertension; Z88.5 Allergy status to narcotic agent; Z88.0 Allergy status to penicillin; Z88.8 Allergy status to other drugs, medicaments and biological substances; Z79.899 Other long term (current) drug therapy
CPT/HCPCS: 74177; 80053; 81001; 84703; 85025; 96361; 96374-59; 96375; 99285-25; A9270; J1200; J1885; J2405; J2765; J7030; Q9967

== ENCOUNTER → 2023-10-07 | Outpatient (CLI) | payer OTHER ==
[~2023-10-07] MED LIST changes: +CEFD300 PO
== END | disposition home or self-care (01) ==
LOC: LAB SHORT 17:14
DX: R10.2 Pelvic and perineal pain (principal)
CPT/HCPCS: 87086

== ENCOUNTER 2023-12-13 15:24 | Emergency (ER) | payer OTHER ==
[~2023-12-13] VITALS: Ht 154.9 cm; Wt 102.1 kg
[~2023-12-13 15:24] MED LIST changes: -ACULAR5 ML; +ACULAR5 ML BOTHEYES; +PREDNISOLONE ACE5 ML BOTHEYES; -PREDNISOLONE ACE5 ML OP; -Sanctura20 MG PO; -TIMO.25OPS BOTHEYES; +TRAZ100 PO; -TRAZ50 PO; +TROSPIUM CHLORI60 MG PO
[2023-12-13 15:32] VITALS: BP 154/107
[2023-12-13] MEDS ORDERED: Ondansetron HCl 2 MG / ML 2ML Vial IV ONE (15:55)
[2023-12-13 16:08] LABS: BASOPHILS ABSOLUTE AUTO 0.04 K/mm3 (0.00-0.23); BASOPHILS PERCENT AUTO 0 % (0-2); EOSINOPHILS ABSOLUTE AUTO 0.15 K/mm3 (0.00-0.68); EOSINOPHILS PERCENT AUTO 1 % (0-6); Hematocrit 38.9 % (33.0-51.0); Hemoglobin 12.9 g/dL (11.5-16.0); IMMATURE GRAN ABSOLUTE AUTO 0.03 K/mm3 (0.00-0.10); IMMATURE GRAN PERCENT AUTO 0 % (0-1); LYMPHOCYTES ABSOLUTE AUTO 1.38 K/mm3 (0.84-5.20); LYMPHOCYTES PERCENT AUTO 13 % (21-46); MONOCYTES ABSOLUTE AUTO 0.87 K/mm3 (0.16-1.47); MONOCYTES PERCENT AUTO 8 % (4-13); Mean Corpuscular HGB 28.5 pg (26.0-34.0); Mean Corpuscular HGB Conc 33.2 g/dL (31.5-36.5); Mean Corpuscular Volume 86 fL (80-100); Mean Platelet Volume 9.9 fL (9.1-12.4); NEUTROPHILS PERCENT AUTO 77 % (41-73); Platelet Count 282 K/mm3 (150-400); RDW Coefficient Variation 12.9 % (11.7-14.2); RDW Standard Deviation 40.3 fL (35.1-46.3); Red Blood Cell Count 4.52 M/mm3 (3.80-5.20); White Blood Cell Count 10.87 K/mm3 (4.00-11.30)
[2023-12-13 16:33] LABS: Albumin, Blood 3.3 g/dL (3.4-5.0); Albumin/Globulin Ratio 0.8 (0.8-1.8); Bilirubin, Total 0.5 mg/dL (0.1-1.0); Bun/Creatinine Ratio 12.8 (12.0-20.0); Calcium, Blood 8.6 mg/dL (8.5-10.1); Creatinine, Blood 0.7 mg/dL (0.40-1.00); Globulin, Blood 3.9 g/dL (2.2-4.0); Potassium, Blood 3.6 mmol/L (3.5-5.5); Total Protein, Blood 7.2 g/dL (6.4-8.2)
[2023-12-13] MEDS ORDERED: Ketorolac Tromethamine 15mg Vial IV ONE (16:45)
[2023-12-13] MEDS ORDERED: Lidocaine 4% 1 Patch TOP ONE (16:55)
[2023-12-13] MEDS ORDERED: RX Prepack 2 Tabs Ondansetron ODT 4MG UD ONE (16:55)
[2023-12-13] MEDS ORDERED: ASPERFLEX1 EACH TOP (16:58)
[2023-12-13] MEDS ORDERED: ONDA4 PO (16:58)
== END 2023-12-13 17:15 | disposition home or self-care (01) ==
LOC: ER 15:24
PROVIDERS: Student in an Organized Health Care Education/Training Program
DX: S09.90XA Unspecified injury of head, initial encounter (principal); E78.5 Hyperlipidemia, unspecified; I10 Essential (primary) hypertension; W18.30XA Fall on same level, unspecified, initial encounter; Z79.899 Other long term (current) drug therapy; Z88.5 Allergy status to narcotic agent; Z88.0 Allergy status to penicillin; Z88.8 Allergy status to other drugs, medicaments and biological substances
CPT/HCPCS: 70450; 72125; 80053; 85025; 96374; 96375; 99284-25; A9270; J1885; J2405

== ENCOUNTER 2023-12-15 10:58 | Emergency (ER) | payer OTHER ==
[~2023-12-15] VITALS: Ht 165.1 cm; Wt 90.7 kg
[~2023-12-15 10:58] MED LIST changes: +ASPERFLEX1 EACH TOP; +ONDA4 PO
[2023-12-15 12:13] LABS: Source, Urine Clean Catch
[2023-12-15 12:22] LABS: Appearance, Urine Clear (Clear); Bilirubin, Urine Neg (Neg); Blood, Urine Neg (Neg); Glucose Qualitative, Urine Neg (Neg); Ketones, Urine Neg (Neg); Leukocyte Esterase, Urine Neg (Neg); Nitrite, Urine Neg (Neg); Protein, Urine Neg (Neg); Urobilinogen, Urine NORM (Normal)
[2023-12-15 12:28] LABS: Color, Urine Pale Yellow (P-Yellow)
[2023-12-15 12:48] LABS: U Amphetamine Screen Not Detected; U Barbituate Screen Not Detected; U Benzodiazapine Screen Not Detected; U Buprenorphine Screen Not Detected; U Cannabinoids Screen Not Detected; U Cocaine Screen Not Detected; U Methadone Screen Not Detected; U Methamphetamine Screen Not Detected; U Opiates Screen Not Detected; U Oxycodone Screen Not Detected; U Phencyclidine Screen Not Detected
[2023-12-15 13:10] LABS: BASOPHILS ABSOLUTE AUTO 0.04 K/mm3 (0.00-0.23); BASOPHILS PERCENT AUTO 1 % (0-2); EOSINOPHILS ABSOLUTE AUTO 0.13 K/mm3 (0.00-0.68); EOSINOPHILS PERCENT AUTO 2 % (0-6); Hemoglobin 13.4 g/dL (11.5-16.0); IMMATURE GRAN ABSOLUTE AUTO 0.02 K/mm3 (0.00-0.10); IMMATURE GRAN PERCENT AUTO 0 % (0-1); LYMPHOCYTES ABSOLUTE AUTO 1.26 K/mm3 (0.84-5.20); LYMPHOCYTES PERCENT AUTO 16 % (21-46); MONOCYTES ABSOLUTE AUTO 0.79 K/mm3 (0.16-1.47); MONOCYTES PERCENT AUTO 10 % (4-13); Mean Corpuscular HGB 28.9 pg (26.0-34.0); Mean Corpuscular HGB Conc 33.5 g/dL (31.5-36.5); Mean Corpuscular Volume 86 fL (80-100); Mean Platelet Volume 10.1 fL (9.1-12.4); NEUTROPHILS ABSOLUTE AUTO 5.67 K/mm3 (1.96-9.15); NEUTROPHILS PERCENT AUTO 72 % (41-73); Platelet Count 289 K/mm3 (150-400); RDW Coefficient Variation 12.8 % (11.7-14.2); RDW Standard Deviation 40.3 fL (35.1-46.3); Red Blood Cell Count 4.64 M/mm3 (3.80-5.20); White Blood Cell Count 7.91 K/mm3 (4.00-11.30)
[2023-12-15 13:45] LABS: Ethanol (Alcohol), Blood, Med <3 mg/dL; Salicylate <1.7 mg/dL (2.8-20.0)
[2023-12-15 13:48] LABS: Alanine Aminotransfer (ALT/SGP 21 U/L (12-78); Albumin, Blood 3.3 g/dL (3.4-5.0); Albumin/Globulin Ratio 0.8 (0.8-1.8); Alk Phos 90 U/L (50-136); Anion Gap 11 mmol/L (3-11); Aspartate Aminotrans (AST/SGOT 14 U/L (12-37); Bilirubin, Total 0.3 mg/dL (0.1-1.0); Blood Urea Nitrogen 8 mg/dL (8-24); Bun/Creatinine Ratio 10.7 (12.0-20.0); CO2, Blood 26 mmol/L (21-32); Calcium, Blood 8.8 mg/dL (8.5-10.1); Chloride, Blood 107 mmol/L (98-108); Creatinine, Blood 0.75 mg/dL (0.40-1.00); Globulin, Blood 4.1 g/dL (2.2-4.0); Glomerular Filtration Rate 95 (60-); Glucose, Blood 111 mg/dL (70-99); Potassium, Blood 3.9 mmol/L (3.5-5.5); Sodium, Blood 140 mmol/L (136-145); Total Protein, Blood 7.4 g/dL (6.4-8.2)
[2023-12-15 13:49] LABS: Acetaminophen, Random <2.0 ug/mL (10.0-30.0)
[2023-12-15] MEDS ORDERED: Ketorolac Tromethamine 15mg Vial IV ONE (14:20)
[2023-12-15 19:30] VITALS: BP 172/90
[2023-12-15] MEDS ORDERED: Ibuprofen 400 MG Tab PO ONE (20:25)
[2023-12-15] MEDS ORDERED: Ketorolac 0.5% Opth Soln BTL BOTHEYES ONE (20:25)
[2023-12-15] MEDS ORDERED: PrednisoLONE 1% Opth Susp 5 ML BOTHEYES SCH (21:00)
[2023-12-15] MEDS ORDERED: Timolol 0.25% Opth Soln 5 ml BOTHEYES SCH (21:00)
[2023-12-16] MEDS ORDERED: Lidocaine 4% 1 Patch TOP ONE (01:25)
[2023-12-16] MEDS ORDERED: HyDROXyzine HCl 25 MG Tab PO PRN (02:00)
[2023-12-16] MEDS ORDERED: TraZODone HCl 50 MG Tab PO ONE (02:50)
[2023-12-16] MEDS ORDERED: Progesterone, Micronized 100 MG Cap PO ONE (02:50)
[2023-12-16] MEDS ORDERED: Prazosin HCL 5 MG Cap PO ONE (02:50)
[2023-12-16] MEDS ORDERED: Atorvastatin 40 MG Tab PO ONE (02:55)
[2023-12-16] MEDS ORDERED: Propranolol HCL 20 MG TAB PO ONE (02:55)
[2023-12-16] MEDS ORDERED: Docusate Sodium 100 MG Cap PO ONE (02:55)
[2023-12-16] MEDS ORDERED: Propranolol HCL 20 MG TAB PO SCH (09:00)
[2023-12-16] MEDS ORDERED: Docusate Sodium 100 MG Cap PO SCH (09:00)
[2023-12-16] MEDS ORDERED: Ibuprofen 600 MG Tab PO ONE (15:15)
[2023-12-16] MEDS ORDERED: TraZODone HCl 50 MG Tab PO SCH (21:00)
[2023-12-16] MEDS ORDERED: Progesterone, Micronized 100 MG Cap PO SCH (21:00)
[2023-12-16] MEDS ORDERED: Prazosin HCL 5 MG Cap PO SCH (21:00)
[2023-12-16] MEDS ORDERED: Atorvastatin 40 MG Tab PO SCH (21:00)
[2023-12-17] MEDS ORDERED: MEDR5 PO (22:28)
== END 2023-12-16 18:47 | disposition home or self-care (01) ==
LOC: ER 10:58
PROVIDERS: Student in an Organized Health Care Education/Training Program
DX: R44.0 Auditory hallucinations (principal); R45.88 Nonsuicidal self-harm; E78.5 Hyperlipidemia, unspecified; I10 Essential (primary) hypertension; Z79.899 Other long term (current) drug therapy; Z88.0 Allergy status to penicillin; Z88.5 Allergy status to narcotic agent; Z88.8 Allergy status to other drugs, medicaments and biological substances
CPT/HCPCS: 73090; 73560-LT; 74177; 76857; 80053; 80320; 81003; 85025; 93005; 93010; 96374-59; 99285-25; A9270; G0480; J1885; Q9967

== ENCOUNTER 2023-12-17 12:53 | Inpatient (IN) | payer OTHER ==
[~2023-12-17] VITALS: Ht 167.6 cm; Wt 105.0 kg
[2023-12-17] MEDS ORDERED: OLANZapine ODT 5 MG Tab MM ONE (15:30)
[2023-12-17] MEDS ORDERED: FLU VACC TS2024-25(6MOS UP)/PF 45 MCG/0.5 ML SYRINGE IM SCH (15:40)
[2023-12-17] MEDS ORDERED: Acetaminophen 325 MG TABLET PO PRN (15:40)
[2023-12-17] MEDS ORDERED: Droperidol 5 mg/2 ml Vial IM ONE (15:50)
[2023-12-17] MEDS ORDERED: OLANZapine ODT 5 MG Tab MM PRN (17:00)
[2023-12-17] MEDS ORDERED: OLANZapine 10 MG Vial IM PRN (17:00)
--- NOTE | 2023-12-17 20:15 | NUR ---
NEW ADMIT. PATIENT ADMITTED TO ROOM 345 FROM THE ER. PATIENT ARRIVED TO ROOM VIA GURNEY AND ONE PERSON TRANSPORT. PATIENT SOMNOLENT UPON ARRIVAL. PATIENT TRANSFERED TO HOSPITAL BED FROM [facility] VIA SLIDE SHEET AND 4P ASSIST. PATIENT ARRIVED TO ROOM WITH 1 PERSONAL BELINGINGS BAG. THIS RN TO ASSUME PATIENT CARE.
[2023-12-17 20:27] VITALS: BP 143/116
[2023-12-17 20:28] VITALS: BP 167/94
[2023-12-17] MEDS ORDERED: Ondansetron HCl 2 MG / ML 2ML Vial IV PRN (21:20)
[2023-12-17] MEDS ORDERED: MEDR5 PO (22:28)
[2023-12-18 03:47] VITALS: BP 184/98
--- NOTE | 2023-12-18 04:10 | NUR ---
SHIFT SUMMARY. PATIENT IS ALERT TO SELF. PATIENT SOMNOLENT T/O SHIFT. PATIENT IS ABLE TO ANSWER QUESTIONS AT TIMES. PATIENT CONTINUES TO SAY "I AM SAFE", "I NEED TO RELAX AND LOOSEN UP". PATIENT SLEEPING T/O SHIFT WITH RESPIRATIONS EQUAL AND UNLABORED. PATIENT HAS NO IV ACCESS. PATIENT HAS ATTENDS IN PLACE-CHANGED NEEDED. REQUEST FROM PATIENTS PHARMACY FOR MEDICATION RECORDS IS IN-NO RECORDS RECEIVED AT THIS TIME. PER CAREGIVER PATIENT TAKES ALL MEDICATIONS THAT ARE ON HER LIST FROM THE PHARMACY. BED IS LOCKED IN THE LOWEST POSITION WITH CALL LIGHT IN REACH. CARE IS ONGOING.
--- NOTE | 2023-12-18 05:00 | NUR ---
HOSPITALIST CONTACTED. DR. GELLER NOTIFIED OF PATIENTS BLADDER SCAN VOLUME >[id number]. DOCTOR ORDERED TO STRAIGHT CATH X1 NOW AND TO REPEAT BLADDER SCAN 6 HOURS POST STRAIGHT CATH.
[2023-12-18 06:38] LABS: BASOPHILS ABSOLUTE AUTO 0.02 K/mm3 (0.00-0.23); BASOPHILS PERCENT AUTO 0 % (0-2); EOSINOPHILS ABSOLUTE AUTO 0.03 K/mm3 (0.00-0.68); EOSINOPHILS PERCENT AUTO 0 % (0-6); Hemoglobin 12.6 g/dL (11.5-16.0); IMMATURE GRAN ABSOLUTE AUTO 0.06 K/mm3 (0.00-0.10); IMMATURE GRAN PERCENT AUTO 0 % (0-1); LYMPHOCYTES ABSOLUTE AUTO 1.06 K/mm3 (0.84-5.20); LYMPHOCYTES PERCENT AUTO 7 % (21-46); MONOCYTES ABSOLUTE AUTO 1.67 K/mm3 (0.16-1.47); MONOCYTES PERCENT AUTO 10 % (4-13); Mean Corpuscular HGB 28.4 pg (26.0-34.0); NEUTROPHILS ABSOLUTE AUTO 13.53 K/mm3 (1.96-9.15); NEUTROPHILS PERCENT AUTO 83 % (41-73); Platelet Count 289 K/mm3 (150-400); RDW Coefficient Variation 12.1 % (11.7-14.2); RDW Standard Deviation 35.4 fL (35.1-46.3); Red Blood Cell Count 4.44 M/mm3 (3.80-5.20); White Blood Cell Count 16.37 K/mm3 (4.00-11.30)
[2023-12-18 06:57] LABS: Mean Corpuscular Volume 81 fL (80-100)
[2023-12-18 07:08] VITALS: BP 170/98
[2023-12-18 07:15] LABS: Albumin, Blood 3.1 g/dL (3.4-5.0); Albumin/Globulin Ratio 0.8 (0.8-1.8); Bilirubin, Total 1.2 mg/dL (0.1-1.0); Bun/Creatinine Ratio 9.9 (12.0-20.0); Calcium, Blood 7.1 mg/dL (8.5-10.1); Creatinine, Blood 0.51 mg/dL (0.40-1.00); Globulin, Blood 3.8 g/dL (2.2-4.0); Potassium, Blood 2.9 mmol/L (3.5-5.5); Total Protein, Blood 6.9 g/dL (6.4-8.2)
[2023-12-18] MEDS ORDERED: Potassium Chl 20MEQ/Water100ML 100 ML IV SCH (08:10)
[2023-12-18] MEDS ORDERED: NS 250 ML IV PRN (08:25)
[2023-12-18] MEDS ORDERED: NS 1,000 ML IV SCH (08:40)
[2023-12-18] MEDS ORDERED: Potassium Chloride 20 MEQ TabCR PO ONE (09:00)
[2023-12-18] MEDS ORDERED: Enoxaparin 40 MG/0.4 ML SYR SC SCH (09:00)
[2023-12-18] MEDS ORDERED: HydrALAZINE HCl 20 MG / ML 1ML Vial IV PRN (09:55)
--- NOTE | 2023-12-18 10:01 | NUR ---
Patient anxious about her cellphone. Stated, "In the E.R. I handed it to the nurse who was ok to charge it." Described what was happening while she was in e.r. and that she needs it now. We've gotten her to a state of calm so we're trying to maintain it. Had the nurse call down to check for it then ran down to see if in their lost n found. The e.r. searched with no item found. Hoping its maybe with family and patient will continue to be relaxed today.
[2023-12-18] MEDS ORDERED: AMLO5 PO (10:21)
[2023-12-18] MEDS ORDERED: Artificial Tear15 ML BOTHEYES (10:22)
[2023-12-18] MEDS ORDERED: Alphagan P5 ML BOTHEYES (10:24)
[2023-12-18] MEDS ORDERED: CAPLYTA42 MG PO (10:25)
[2023-12-18] MEDS ORDERED: ALEVE ARTHRITI100 GM TOP (10:27)
[2023-12-18] MEDS ORDERED: FAMO20 PO (10:28)
[2023-12-18] MEDS ORDERED: Prozac40 MG PO (10:29)
[2023-12-18] MEDS ORDERED: Flonase 0.05% N16 GM (10:30)
[2023-12-18] MEDS ORDERED: LINZESS290 MCG PO (10:32)
[2023-12-18] MEDS ORDERED: Hydroxyzine HCl50 MG PO (10:32)
[2023-12-18] MEDS ORDERED: TRIA15CR3 TOP (10:40)
[2023-12-18 11:34] LABS: Phosphorus, Blood 1.7 mg/dL (2.5-4.9)
[2023-12-18 12:02] LABS: Bun/Creatinine Ratio 11.9 (12.0-20.0); Calcium, Blood 7.2 mg/dL (8.5-10.1); Creatinine, Blood 0.59 mg/dL (0.40-1.00); Potassium, Blood 3.7 mmol/L (3.5-5.5)
[2023-12-18] MEDS ORDERED: Famotidine 20 MG Tab PO PRN (14:35)
[2023-12-18] MEDS ORDERED: HyDROXyzine HCl 25 MG Tab PO PRN (14:35)
[2023-12-18 14:37] VITALS: BP 146/66
[2023-12-18] MEDS ORDERED: Losartan Potassium 50 MG Tab PO SCH (15:00)
[2023-12-18] MEDS ORDERED: Peg 400/Hypromellose/Glycerin 15 DROP/ML BTL BOTHEYES PRN (15:00)
[2023-12-18] MEDS ORDERED: DICLOFENAC SODIUM 1% TOP PRN (15:05)
--- NOTE | 2023-12-18 18:10 | NUR ---
SHIFT SUMMARY PT A&OX4, VSS, AMB W/ SBA TO THE BSC, TOLERATING PO, VOIDING, AND DENIED PAIN. PT ADMITS TO AUDITORY HALLUCINATIONS, BUT STATES THAT SHE "HEARS MORE LOVE NOW". K LAB 2.9 THIS AM AND IV AND ORAL K GIVEN. K IMPROVED AND NOW 3.7. NS CONT TO INFUSE PER ORDER AT 100 MLS/HR. PT C/O ANXIETY X1 AND WAS MEDICATED PER EMAR. NO OTHER ACUTE CHANGES. CALL LIGHT WITHIN REACH AND PT ABLE TO MAKE NEEDS KNOWN.
[2023-12-18] MEDS ORDERED: Brimonidine Tartrate 0.2% Opth 5 ml BOTHEYES SCH (21:00)
[2023-12-18] MEDS ORDERED: Triamcinolone Acet 0.1% Cream 15 gm TOP SCH (21:00)
[2023-12-18] MEDS ORDERED: Atorvastatin 40 MG Tab PO SCH (21:00)
[2023-12-18] MEDS ORDERED: Progesterone, Micronized 100 MG Cap PO SCH (21:00)
[2023-12-18] MEDS ORDERED: Propranolol HCL 20 MG TAB PO SCH (21:00)
[2023-12-18] MEDS ORDERED: TraZODone HCl 100 MG Tab PO SCH (21:00)
[2023-12-18] MEDS ORDERED: Prazosin HCL 5 MG Cap PO SCH (21:00)
[2023-12-18] MEDS ORDERED: PrednisoLONE 1% Opth Susp 5 ML BOTHEYES SCH (21:00)
[2023-12-18] MEDS ORDERED: Timolol 0.5% Opth Soln 5 ML BOTHEYES SCH (21:00)
[2023-12-19 02:34] VITALS: BP 82/47
[2023-12-19 03:36] VITALS: BP 86/53
[2023-12-19] MEDS ORDERED: NS 500 ML IV ONE (03:50)
--- NOTE | 2023-12-19 04:29 | NUR ---
SHIFT SUMMARY. PATIENT IS A&OX4. PATIEN C/O PAIN X2-MEDICATED X1; NEXT MEDICATION AVALIABILITY FOR PAIN MEDS IS APPROX. [id number]. PATIENT IS PLEASANT AND COOPERATIVE WITH CARE. PATIENT UP TO SHOWER EARLIER IN SHIFT. PATIENT RESTED T/O NIGHT WITH RESPIRATIONS EQUA AND UNLABORED-PATIENT SLEPT WITH 2L'S O2 VIA NASAL CANNULA-CPAP NOT USED D/T ABRASION ON FOREHEAD/HAIRLINE. PATIENT HYPOTENSIVE AT MORNING VITALS-500ML BOLUS GIVEN-TO RECHECK VITALS ONCE COMPLETE-SEE VITALS. BED IS LOCKED IN THE LOWEST POSITION WITH CALL LIGHT IN REACH. CARE IS ONGOING.
[2023-12-19 05:20] VITALS: BP 126/86
[2023-12-19] MEDS ORDERED: Omeprazole 20 MG CapCR PO SCH (06:00)
[2023-12-19] MEDS ORDERED: Polyethylene Glycol 3350 17 gm PO PRN (06:45)
[2023-12-19 07:06] VITALS: BP 146/80
[2023-12-19 08:26] LABS: BASOPHILS ABSOLUTE AUTO 0.04 K/mm3 (0.00-0.23); BASOPHILS PERCENT AUTO 1 % (0-2); EOSINOPHILS ABSOLUTE AUTO 0.13 K/mm3 (0.00-0.68); EOSINOPHILS PERCENT AUTO 2 % (0-6); Hematocrit 34.2 % (33.0-51.0); Hemoglobin 11.4 g/dL (11.5-16.0); IMMATURE GRAN ABSOLUTE AUTO 0.03 K/mm3 (0.00-0.10); IMMATURE GRAN PERCENT AUTO 0 % (0-1); LYMPHOCYTES ABSOLUTE AUTO 1.56 K/mm3 (0.84-5.20); LYMPHOCYTES PERCENT AUTO 19 % (21-46); MONOCYTES ABSOLUTE AUTO 1.45 K/mm3 (0.16-1.47); MONOCYTES PERCENT AUTO 18 % (4-13); Mean Corpuscular HGB 28.6 pg (26.0-34.0); Mean Corpuscular HGB Conc 33.3 g/dL (31.5-36.5); Mean Platelet Volume 9.9 fL (9.1-12.4); NEUTROPHILS ABSOLUTE AUTO 4.96 K/mm3 (1.96-9.15); NEUTROPHILS PERCENT AUTO 61 % (41-73); Platelet Count 260 K/mm3 (150-400); RDW Coefficient Variation 13.1 % (11.7-14.2); RDW Standard Deviation 40.4 fL (35.1-46.3); Red Blood Cell Count 3.98 M/mm3 (3.80-5.20); White Blood Cell Count 8.17 K/mm3 (4.00-11.30)
[2023-12-19 08:28] LABS: Mean Corpuscular Volume 86 fL (80-100)
[2023-12-19 08:46] LABS: Magnesium, Blood 2.2 mg/dL (1.6-2.4)
[2023-12-19] MEDS ORDERED: AmLODIPine Besylate 5 MG Tab PO SCH (09:00)
[2023-12-19] MEDS ORDERED: FLUoxetine HCL 20 MG CAP PO SCH (09:00)
[2023-12-19] MEDS ORDERED: Ketorolac 0.5% Opth Soln BTL BOTHEYES SCH (09:00)
[2023-12-19] MEDS ORDERED: Calcium Polycarbophil 625 MG Tab PO SCH (09:00)
[2023-12-19] MEDS ORDERED: TROSPIUM 60 MG PO SCH ×2 (09:00→18:00)
[2023-12-19] MEDS ORDERED: LUMATEPERONE 42 MG PO SCH (09:00)
[2023-12-19] MEDS ORDERED: Tamsulosin HCl 0.4 MG Cap PO SCH (09:00)
[2023-12-19] MEDS ORDERED: Fluticasone 0.05% Nasal Spray SCH (09:00)
[2023-12-19] MEDS ORDERED: LINACLOTIDE (LINZESS) 290 MCG CAPSULE PO SCH (09:00)
[2023-12-19] MEDS ORDERED: Lidocaine 4% 1 Patch TOP SCH (09:00)
[2023-12-19 09:10] LABS: Bun/Creatinine Ratio 13.7 (12.0-20.0); Calcium, Blood 8.1 mg/dL (8.5-10.1); Creatinine, Blood 0.95 mg/dL (0.40-1.00); Phosphorus, Blood 1.5 mg/dL (2.5-4.9); Potassium, Blood 3.9 mmol/L (3.5-5.5)
[2023-12-19] MEDS ORDERED: Potassium Phosphate Dibasic 20 MM in Dextrose 5% 500 ML IV SCH (10:40)
[2023-12-19 13:45] VITALS: BP 134/82
--- NOTE | 2023-12-19 15:17 | NUR ---
CALL FROM DR ERNST GIVING TELEPHONE ORDER TO DC WEEKS CATHETER. PRIMARY RN NOTIFIED.
--- NOTE | 2023-12-19 15:18 | NUR ---
PT DOES NOT HAVE WEEKS. E MAIL SYSTEM ADMINISTRATOR NOTIFIED, SEE PREVIOUS NOTE.
--- NOTE | 2023-12-19 18:13 | NUR ---
SHIFT SUMMARY PT HAD EPISODE OF ANIXETY THAT WAS MEDICATED PER THE EMAR AND RESOLVED. PT CONT TO BE CALM AND COOPERATIVE W/ MINIMAL C/O AUDITORY HALLUCINATIONS. POTASSIUM PHOS INFUSING PER ORDER. NO OTHER ACUTE CHANGES. CALL LIGHT WITHIN REACH AND PT ABLE TO MAKE NEEDS KNOWN.
[2023-12-19 19:58] VITALS: BP 135/81
--- NOTE | 2023-12-20 04:26 | NUR ---
SHIFT SUMMARY SLEPT IN LONG INTERVALS. DID NOT USE THE CPAP TONIGHT D/T SKIN IRRITATION ALONG THE PLACEMENT LINE. DID HAVE NC/O2/2L.WAS SOBBING AND TEARFUL EARLY IN MY SHIFT, GAVE HER PRN ZYPREXIA AND TYLENOL.
[2023-12-20 05:55] VITALS: BP 122/65
[2023-12-20 07:24] VITALS: BP 126/80
[2023-12-20 08:30] LABS: BASOPHILS ABSOLUTE AUTO 0.05 K/mm3 (0.00-0.23); BASOPHILS PERCENT AUTO 1 % (0-2); EOSINOPHILS ABSOLUTE AUTO 0.29 K/mm3 (0.00-0.68); EOSINOPHILS PERCENT AUTO 4 % (0-6); Hemoglobin 11.4 g/dL (11.5-16.0); IMMATURE GRAN ABSOLUTE AUTO 0.02 K/mm3 (0.00-0.10); IMMATURE GRAN PERCENT AUTO 0 % (0-1); LYMPHOCYTES ABSOLUTE AUTO 1.68 K/mm3 (0.84-5.20); LYMPHOCYTES PERCENT AUTO 23 % (21-46); MONOCYTES ABSOLUTE AUTO 0.86 K/mm3 (0.16-1.47); MONOCYTES PERCENT AUTO 12 % (4-13); Mean Corpuscular HGB 28.6 pg (26.0-34.0); Mean Corpuscular HGB Conc 32.6 g/dL (31.5-36.5); Mean Corpuscular Volume 88 fL (80-100); Mean Platelet Volume 9.9 fL (9.1-12.4); NEUTROPHILS ABSOLUTE AUTO 4.51 K/mm3 (1.96-9.15); NEUTROPHILS PERCENT AUTO 61 % (41-73); Platelet Count 270 K/mm3 (150-400); RDW Coefficient Variation 13.3 % (11.7-14.2); RDW Standard Deviation 42.6 fL (35.1-46.3); Red Blood Cell Count 3.99 M/mm3 (3.80-5.20); White Blood Cell Count 7.41 K/mm3 (4.00-11.30)
[2023-12-20 08:49] LABS: Albumin/Globulin Ratio 0.9 (0.8-1.8); Bilirubin, Total 0.5 mg/dL (0.1-1.0); Bun/Creatinine Ratio 11.8 (12.0-20.0); Calcium, Blood 8.2 mg/dL (8.5-10.1); Creatinine, Blood 0.68 mg/dL (0.40-1.00); Globulin, Blood 3.4 g/dL (2.2-4.0); Potassium, Blood 4.3 mmol/L (3.5-5.5); Total Protein, Blood 6.4 g/dL (6.4-8.2)
[2023-12-20] MEDS ORDERED: LUMATEPERONE 42 MG PO SCH (09:00)
[2023-12-20 14:18] VITALS: BP 135/76
--- NOTE | 2023-12-20 17:39 | NUR ---
SHIFT SUMMARY PT CALM AND COOPERATIVE W/ CARE. PT CONT TO C/O MINIMAL AUDITORY HALLUCINATIONS. NO ACUTE CHANGES. CALL LIGHT WITHIN REACH AND PT ABLE TO MAKE NEEDS KNOWN.
[2023-12-20 19:30] VITALS: BP 124/63
[2023-12-21 04:30] VITALS: BP 140/93
--- NOTE | 2023-12-21 04:54 | NUR ---
SHIFT SUMMARY PATIENT SLEPT IN LONG INTERVALS. DID NOT HAE ANY SOBBING EPISODE TONIGHT.DID NOT C/O ANY HALLUCINATIONS EITHER.
[2023-12-21 06:35] LABS: BASOPHILS ABSOLUTE AUTO 0.05 K/mm3 (0.00-0.23); BASOPHILS PERCENT AUTO 1 % (0-2); EOSINOPHILS ABSOLUTE AUTO 0.36 K/mm3 (0.00-0.68); EOSINOPHILS PERCENT AUTO 5 % (0-6); Hematocrit 34.8 % (33.0-51.0); Hemoglobin 11.3 g/dL (11.5-16.0); IMMATURE GRAN ABSOLUTE AUTO 0.02 K/mm3 (0.00-0.10); IMMATURE GRAN PERCENT AUTO 0 % (0-1); LYMPHOCYTES ABSOLUTE AUTO 1.57 K/mm3 (0.84-5.20); LYMPHOCYTES PERCENT AUTO 23 % (21-46); MONOCYTES ABSOLUTE AUTO 0.87 K/mm3 (0.16-1.47); MONOCYTES PERCENT AUTO 12 % (4-13); Mean Corpuscular HGB 28.8 pg (26.0-34.0); Mean Corpuscular HGB Conc 32.5 g/dL (31.5-36.5); Mean Corpuscular Volume 89 fL (80-100); Mean Platelet Volume 10.5 fL (9.1-12.4); NEUTROPHILS ABSOLUTE AUTO 4.12 K/mm3 (1.96-9.15); NEUTROPHILS PERCENT AUTO 59 % (41-73); Platelet Count 292 K/mm3 (150-400); RDW Coefficient Variation 13.1 % (11.7-14.2); RDW Standard Deviation 42.8 fL (35.1-46.3); Red Blood Cell Count 3.93 M/mm3 (3.80-5.20); White Blood Cell Count 6.99 K/mm3 (4.00-11.30)
[2023-12-21 06:36] LABS: Albumin, Blood 2.9 g/dL (3.4-5.0); Anion Gap 7 mmol/L (3-11); Blood Urea Nitrogen 9 mg/dL (8-24); Bun/Creatinine Ratio 11.9 (12.0-20.0); CO2, Blood 30 mmol/L (21-32); Calcium, Blood 8.7 mg/dL (8.5-10.1); Chloride, Blood 104 mmol/L (98-108); Creatinine, Blood 0.76 mg/dL (0.40-1.00); Glomerular Filtration Rate 94 (60-); Glucose, Blood 104 mg/dL (70-99); Phosphorus, Blood 5.1 mg/dL (2.5-4.9); Sodium, Blood 137 mmol/L (136-145)
[2023-12-21 07:46] VITALS: BP 150/91
--- NOTE | 2023-12-21 13:56 | NUR ---
DISCHARGE [id number] WITH PT. PT VERBALIZED UNDERSTANDING MEDS AND INST. INITIALLED RECEIPT OF HOME MEDS. HANDED TO HER IN HER BELONGINGS BAG. IV PULLED BY AIDE. NO TELE. RIDE JUST CALLED. STATES READY AT DOOR. I WILL WHEEL PT TO DOOR.
--- NOTE | 2023-12-21 14:11 | NUR ---
PT WHEELED TO DOOR BY ME AT [id number]
[2023-12-22] MEDS ORDERED: ONDA4ODT MM (17:13)
[2023-12-22] MEDS ORDERED: MECL25 PO (17:14)
[2023-12-22] MEDS ORDERED: CEPH500 PO (20:13)
== END 2023-12-21 14:02 | disposition home health service (06) | DRG 885 ==
LOC: ER 12:53 → MEDS 12:54
PROVIDERS: Registered Nurse; Student in an Organized Health Care Education/Training Program; ADMIT Hospitalist
DX: F31.2 Bipolar disorder, current episode manic severe with psychotic features (principal); E87.1 Hypo-osmolality and hyponatremia; S05.8X2A Other injuries of left eye and orbit, initial encounter; S05.8X1A Other injuries of right eye and orbit, initial encounter; R44.0 Auditory hallucinations; R33.9 Retention of urine, unspecified; K21.9 Gastro-esophageal reflux disease without esophagitis; E78.5 Hyperlipidemia, unspecified; E87.6 Hypokalemia; E83.39 Other disorders of phosphorus metabolism; G47.33 Obstructive sleep apnea (adult) (pediatric); Q11.2 Microphthalmos; Z91.148 Patient's other noncompliance with medication regimen for other reason; E86.0 Dehydration; X58.XXXA Exposure to other specified factors, initial encounter; K58.9 Irritable bowel syndrome, unspecified; F41.9 Anxiety disorder, unspecified; E66.9 Obesity, unspecified; Z98.51 Tubal ligation status; Z98.890 Other specified postprocedural states; Z88.0 Allergy status to penicillin; Z88.5 Allergy status to narcotic agent; Z88.8 Allergy status to other drugs, medicaments and biological substances; Z79.899 Other long term (current) drug therapy; R45.88 Nonsuicidal self-harm; I10 Essential (primary) hypertension
CPT/HCPCS: 36415; 70450; 73090; 73560-LT; 74177; 76857; 80048; 80053; 80069; 80320; 81003; 83735; 84100; 85025; 93005; 93010; 94760; 94762; 96372; 96374; 96374-59; 96375; 96376; 97116; 97161; 97530; 99285-25; A9270; G0378; G0480; J1650; J1790; J1885; J2405; J3480; J7030; J7040; J7050; J7060; Q9967

== ENCOUNTER 2023-12-22 14:19 | Emergency (ER) | payer OTHER ==
[~2023-12-22] VITALS: Ht 154.9 cm; Wt 104.3 kg
[~2023-12-22 14:19] MED LIST changes: +ALEVE ARTHRITI100 GM TOP; +AMLO5 PO; +Artificial Tear15 ML BOTHEYES; +CAPLYTA42 MG PO; +FAMO20 PO; +Flonase 0.05% N16 GM; +Hydroxyzine HCl50 MG PO; +LINZESS290 MCG PO; +MEDR5 PO; +Prozac40 MG PO; +TRIA15CR3 TOP
[2023-12-22] MEDS ORDERED: Ondansetron HCl 2 MG / ML 2ML Vial IV ONE (15:35)
[2023-12-22] MEDS ORDERED: NS 1,000 ML IV SCH (15:35)
[2023-12-22] MEDS ORDERED: Meclizine HCl 25 MG Tab PO ONE (16:30)
[2023-12-22 16:57] LABS: BASOPHILS ABSOLUTE AUTO 0.04 K/mm3 (0.00-0.23); BASOPHILS PERCENT AUTO 1 % (0-2); EOSINOPHILS ABSOLUTE AUTO 0.34 K/mm3 (0.00-0.68); EOSINOPHILS PERCENT AUTO 5 % (0-6); Hematocrit 34.8 % (33.0-51.0); Hemoglobin 11.6 g/dL (11.5-16.0); IMMATURE GRAN ABSOLUTE AUTO 0.03 K/mm3 (0.00-0.10); IMMATURE GRAN PERCENT AUTO 0 % (0-1); LYMPHOCYTES ABSOLUTE AUTO 1.62 K/mm3 (0.84-5.20); LYMPHOCYTES PERCENT AUTO 22 % (21-46); MONOCYTES PERCENT AUTO 13 % (4-13); Mean Corpuscular HGB 28.8 pg (26.0-34.0); Mean Corpuscular HGB Conc 33.3 g/dL (31.5-36.5); Mean Corpuscular Volume 86 fL (80-100); Mean Platelet Volume 9.7 fL (9.1-12.4); NEUTROPHILS ABSOLUTE AUTO 4.51 K/mm3 (1.96-9.15); NEUTROPHILS PERCENT AUTO 60 % (41-73); Platelet Count 290 K/mm3 (150-400); RDW Standard Deviation 40.8 fL (35.1-46.3); Red Blood Cell Count 4.03 M/mm3 (3.80-5.20); White Blood Cell Count 7.54 K/mm3 (4.00-11.30)
[2023-12-22] MEDS ORDERED: ONDA4ODT MM (17:13)
[2023-12-22] MEDS ORDERED: MECL25 PO (17:14)
[2023-12-22 17:19] LABS: Albumin, Blood 3.1 g/dL (3.4-5.0); Bilirubin, Total 0.8 mg/dL (0.1-1.0); Bun/Creatinine Ratio 13.5 (12.0-20.0); Calcium, Blood 8.7 mg/dL (8.5-10.1); Creatinine, Blood 0.74 mg/dL (0.40-1.00); Globulin, Blood 3.2 g/dL (2.2-4.0); Magnesium, Blood 1.7 mg/dL (1.6-2.4); Total Protein, Blood 6.3 g/dL (6.4-8.2)
[2023-12-22 17:47] LABS: Source, Urine Clean Catch
[2023-12-22 18:38] LABS: Appearance, Urine Hazy (Clear); Bilirubin, Urine Neg (Neg); Blood, Urine 5+ (Neg); Glucose Qualitative, Urine Neg (Neg); Ketones, Urine Neg (Neg); Leukocyte Esterase, Urine 1+ (Neg); Nitrite, Urine Neg (Neg); Protein, Urine Neg (Neg); Urobilinogen, Urine NORM (Normal); pH, Urine 6.5 (5.0-8.0)
[2023-12-22 18:57] LABS: Color, Urine Pale Yellow (P-Yellow)
[2023-12-22 18:59] LABS: Amorphous Light (0-Heavy); Bacteria Mod /hpf; Red Blood Cells, Urine TNTC /hpf (0-2); Squamous Epithelial Cells Rare /hpf (Few)
[2023-12-22] MEDS ORDERED: Ibuprofen 600 MG Tab PO ONE (19:15)
[2023-12-22] MEDS ORDERED: Acetaminophen 500 MG Tab PO ONE (19:15)
[2023-12-22] MEDS ORDERED: Ondansetron 4 MG TAB PO ONE (19:15)
[2023-12-22] MEDS ORDERED: CEPH500 PO (20:13)
[2023-12-22] MEDS ORDERED: Cephalexin Monohydrate 500 MG Cap PO ONE (20:15)
[2023-12-22 21:00] VITALS: BP 157/70
== END 2023-12-22 20:26 | disposition home or self-care (01) ==
LOC: ER 14:19
PROVIDERS: Emergency Medicine
DX: R42 Dizziness and giddiness (principal); E78.5 Hyperlipidemia, unspecified; I10 Essential (primary) hypertension; Z79.51 Long term (current) use of inhaled steroids; Z79.899 Other long term (current) drug therapy; Z88.0 Allergy status to penicillin; Z88.5 Allergy status to narcotic agent; Z88.8 Allergy status to other drugs, medicaments and biological substances
CPT/HCPCS: 70450; 73100; 73120; 80053; 81001; 83690; 83735; 84484; 85025; 93005; 93010; 96360; 99285-25; A9270; J7030

== ENCOUNTER 2023-12-24 11:22 | Emergency (ER) | payer OTHER ==
[~2023-12-24] VITALS: Ht 170.2 cm; Wt 108.9 kg
[~2023-12-24 11:22] MED LIST changes: +MECL25 PO
[2023-12-24] MEDS ORDERED: Sennosides 8.6 MG Tab PO ONE (12:05)
[2023-12-24] MEDS ORDERED: Polyethylene Glycol 3350 17 gm PO ONE (12:05)
[2023-12-24 15:15] VITALS: BP 137/79
== END 2023-12-24 16:53 | disposition home or self-care (01) ==
LOC: ER 11:22
DX: F91.9 Conduct disorder, unspecified (principal); K59.00 Constipation, unspecified; F41.9 Anxiety disorder, unspecified; R39.198 Other difficulties with micturition; E78.5 Hyperlipidemia, unspecified; I10 Essential (primary) hypertension; G47.30 Sleep apnea, unspecified; Z79.51 Long term (current) use of inhaled steroids; Z79.52 Long term (current) use of systemic steroids; Z79.899 Other long term (current) drug therapy; Z88.0 Allergy status to penicillin; Z88.5 Allergy status to narcotic agent; Z88.8 Allergy status to other drugs, medicaments and biological substances
CPT/HCPCS: 51798; 74018; 99284-25; A9270

== ENCOUNTER 2023-12-27 06:31 | Emergency (ER) | payer OTHER ==
[~2023-12-27] VITALS: Ht 154.9 cm; Wt 79.4 kg
[2023-12-27 06:36] VITALS: BP 179/98
== END 2023-12-27 07:42 | disposition home or self-care (01) ==
LOC: ER 06:31
DX: F41.9 Anxiety disorder, unspecified (principal); E78.5 Hyperlipidemia, unspecified; I10 Essential (primary) hypertension; G47.30 Sleep apnea, unspecified; Z79.899 Other long term (current) drug therapy; Z79.51 Long term (current) use of inhaled steroids; Z88.5 Allergy status to narcotic agent; Z88.0 Allergy status to penicillin; Z88.8 Allergy status to other drugs, medicaments and biological substances
CPT/HCPCS: 99283

== ENCOUNTER 2024-01-26 13:52 | Emergency (ER) | payer OTHER ==
[~2024-01-26] VITALS: Ht 154.9 cm; Wt 117.9 kg
[2024-01-26 13:58] VITALS: BP 204/116
== END 2024-01-26 15:40 | disposition home or self-care (01) ==
LOC: ER 13:52
DX: F32.A Depression, unspecified (principal); E78.5 Hyperlipidemia, unspecified; G47.00 Insomnia, unspecified; Z79.52 Long term (current) use of systemic steroids; Z79.899 Other long term (current) drug therapy; Z88.5 Allergy status to narcotic agent; Z88.0 Allergy status to penicillin; Z88.8 Allergy status to other drugs, medicaments and biological substances
CPT/HCPCS: 99284

== ENCOUNTER 2024-02-15 14:04 | Emergency (ER) | payer OTHER ==
[~2024-02-15] VITALS: Ht 154.9 cm; Wt 104.3 kg
[~2024-02-15 14:04] MED LIST changes: +Amitriptyline H10 MG PO
[2024-02-15 15:33] VITALS: BP 188/104
== END 2024-02-15 17:05 | disposition home or self-care (01) ==
LOC: ER 14:04
DX: Z00.00 Encounter for general adult medical examination without abnormal findings (principal); Q11.2 Microphthalmos; E78.5 Hyperlipidemia, unspecified; I10 Essential (primary) hypertension; G47.30 Sleep apnea, unspecified; Z59.89 Other problems related to housing and economic circumstances; Z88.5 Allergy status to narcotic agent; Z88.0 Allergy status to penicillin; Z88.8 Allergy status to other drugs, medicaments and biological substances; Z79.899 Other long term (current) drug therapy
CPT/HCPCS: 99283

== ENCOUNTER 2024-02-24 16:19 | Observation (INO) | payer OTHER ==
[~2024-02-24] VITALS: Ht 162.6 cm; Wt 79.4 kg
[2024-02-24 18:06] LABS: BASOPHILS ABSOLUTE AUTO 0.04 K/mm3 (0.00-0.23); BASOPHILS PERCENT AUTO 0 % (0-2); EOSINOPHILS ABSOLUTE AUTO 0.21 K/mm3 (0.00-0.68); EOSINOPHILS PERCENT AUTO 2 % (0-6); Hematocrit 39.8 % (33.0-51.0); Hemoglobin 12.8 g/dL (11.5-16.0); IMMATURE GRAN ABSOLUTE AUTO 0.03 K/mm3 (0.00-0.10); IMMATURE GRAN PERCENT AUTO 0 % (0-1); LYMPHOCYTES ABSOLUTE AUTO 1.71 K/mm3 (0.84-5.20); LYMPHOCYTES PERCENT AUTO 16 % (21-46); MONOCYTES ABSOLUTE AUTO 1.06 K/mm3 (0.16-1.47); MONOCYTES PERCENT AUTO 10 % (4-13); Mean Corpuscular HGB 27.3 pg (26.0-34.0); Mean Corpuscular HGB Conc 32.2 g/dL (31.5-36.5); Mean Corpuscular Volume 85 fL (80-100); Mean Platelet Volume 10.1 fL (9.1-12.4); NEUTROPHILS ABSOLUTE AUTO 7.57 K/mm3 (1.96-9.15); NEUTROPHILS PERCENT AUTO 71 % (41-73); Platelet Count 349 K/mm3 (150-400); RDW Standard Deviation 43.4 fL (35.1-46.3); Red Blood Cell Count 4.69 M/mm3 (3.80-5.20); White Blood Cell Count 10.62 K/mm3 (4.00-11.30)
[2024-02-24 18:27] LABS: Ethanol (Alcohol), Blood, Med <3 mg/dL; Salicylate <1.7 mg/dL (2.8-20.0)
[2024-02-24 18:32] LABS: Acetaminophen, Random <2.0 ug/mL (10.0-30.0); Alanine Aminotransfer (ALT/SGP 27 U/L (12-78); Albumin, Blood 3.3 g/dL (3.4-5.0); Albumin/Globulin Ratio 0.9 (0.8-1.8); Alk Phos 81 U/L (50-136); Anion Gap 11 mmol/L (3-11); Aspartate Aminotrans (AST/SGOT 21 U/L (12-37); Bilirubin, Total 0.6 mg/dL (0.1-1.0); Blood Urea Nitrogen 8 mg/dL (8-24); Bun/Creatinine Ratio 12.5 (12.0-20.0); CO2, Blood 26 mmol/L (21-32); Calcium, Blood 8.9 mg/dL (8.5-10.1); Chloride, Blood 104 mmol/L (98-108); Creatinine, Blood 0.64 mg/dL (0.40-1.00); Globulin, Blood 3.7 g/dL (2.2-4.0); Glomerular Filtration Rate 106 (60-); Glucose, Blood 107 mg/dL (70-99); Potassium, Blood 3.4 mmol/L (3.5-5.5); Sodium, Blood 138 mmol/L (136-145)
[2024-02-25 13:43] LABS: Source, Urine Clean Catch
[2024-02-25 13:54] LABS: Appearance, Urine Clear (Clear); Bilirubin, Urine Neg (Neg); Blood, Urine Neg (Neg); Color, Urine Yellow (P-Yellow); Glucose Qualitative, Urine Neg (Neg); Ketones, Urine 3+ (Neg); Leukocyte Esterase, Urine Neg (Neg); Nitrite, Urine Pos (Neg); Protein, Urine 1+ (Neg); Specific Gravity, Urine 1.015 (1.003-1.022); Urobilinogen, Urine NORM (Normal)
[2024-02-25 14:02] VITALS: BP 189/115
[2024-02-25 14:05] LABS: Red Blood Cells, Urine 0-2 /hpf (0-2); Squamous Epithelial Cells Few /hpf (Few); White Blood Cells, Urine 0-2 /hpf (0-5)
[2024-02-25 14:09] LABS: Bacteria Many /hpf
[2024-02-25 14:19] LABS: U Amphetamine Screen Not Detected; U Barbituate Screen Not Detected; U Benzodiazapine Screen DETECTED; U Buprenorphine Screen Not Detected; U Cannabinoids Screen Not Detected; U Cocaine Screen Not Detected; U Methadone Screen Not Detected; U Methamphetamine Screen Not Detected; U Opiates Screen Not Detected; U Oxycodone Screen Not Detected; U Phencyclidine Screen Not Detected
[2024-02-25] MEDS ORDERED: NITR100CA PO (16:16)
[2024-02-25] MEDS ORDERED: Cephalexin Monohydrate 500 MG Cap PO SCH (21:00)
== END 2024-02-25 23:00 | disposition home or self-care (01) ==
LOC: ER 16:19 → EOR 16:20
PROVIDERS: ADMIT Student in an Organized Health Care Education/Training Program
DX: F31.9 Bipolar disorder, unspecified (principal); R45.851 Suicidal ideations; E78.5 Hyperlipidemia, unspecified; I10 Essential (primary) hypertension; G47.30 Sleep apnea, unspecified; Z79.899 Other long term (current) drug therapy; Z88.0 Allergy status to penicillin; Z88.8 Allergy status to other drugs, medicaments and biological substances; Z99.89 Dependence on other enabling machines and devices; Z91.148 Patient's other noncompliance with medication regimen for other reason
CPT/HCPCS: 51798; 80053; 80320; 81001; 81025; 84484; 85025; 87077; 87086; 87147; 87186; 93005; 93010; 99285-25; G0378; G0480

== ENCOUNTER 2024-03-11 00:49 | Emergency (ER) | payer OTHER ==
[~2024-03-11] VITALS: Ht 154.9 cm; Wt 120.2 kg
[~2024-03-11 00:49] MED LIST changes: +NITR100CA PO
[2024-03-11 00:57] VITALS: BP 165/105
[2024-03-11 02:06] LABS: Albumin, Blood 3.2 g/dL (3.4-5.0); Albumin/Globulin Ratio 0.9 (0.8-1.8); Bilirubin, Total 0.4 mg/dL (0.1-1.0); Bun/Creatinine Ratio 15.2 (12.0-20.0); Calcium, Blood 9.1 mg/dL (8.5-10.1); Creatinine, Blood 0.72 mg/dL (0.40-1.00); Globulin, Blood 3.6 g/dL (2.2-4.0); Potassium, Blood 3.9 mmol/L (3.5-5.5); Total Protein, Blood 6.8 g/dL (6.4-8.2)
[2024-03-11 02:16] LABS: BASOPHILS ABSOLUTE AUTO 0.03 K/mm3 (0.00-0.23); BASOPHILS PERCENT AUTO 0 % (0-2); EOSINOPHILS ABSOLUTE AUTO 0.17 K/mm3 (0.00-0.68); EOSINOPHILS PERCENT AUTO 2 % (0-6); Hematocrit 36.8 % (33.0-51.0); Hemoglobin 11.9 g/dL (11.5-16.0); IMMATURE GRAN ABSOLUTE AUTO 0.02 K/mm3 (0.00-0.10); IMMATURE GRAN PERCENT AUTO 0 % (0-1); LYMPHOCYTES ABSOLUTE AUTO 1.49 K/mm3 (0.84-5.20); LYMPHOCYTES PERCENT AUTO 20 % (21-46); MONOCYTES PERCENT AUTO 8 % (4-13); Mean Corpuscular HGB 27.7 pg (26.0-34.0); Mean Corpuscular HGB Conc 32.3 g/dL (31.5-36.5); Mean Corpuscular Volume 86 fL (80-100); Mean Platelet Volume 11.1 fL (9.1-12.4); NEUTROPHILS ABSOLUTE AUTO 5.32 K/mm3 (1.96-9.15); NEUTROPHILS PERCENT AUTO 70 % (41-73); Platelet Count 245 K/mm3 (150-400); RDW Coefficient Variation 14.3 % (11.7-14.2); RDW Standard Deviation 44.6 fL (35.1-46.3); White Blood Cell Count 7.63 K/mm3 (4.00-11.30)
[2024-03-11] MEDS ORDERED: OLANZapine 10 MG Vial IM ONE (02:50)
== END 2024-03-11 02:51 | disposition home or self-care (01) ==
LOC: ER 00:49
PROVIDERS: Student in an Organized Health Care Education/Training Program
DX: R52 Pain, unspecified (principal); G47.30 Sleep apnea, unspecified; E78.5 Hyperlipidemia, unspecified; I10 Essential (primary) hypertension; Z79.52 Long term (current) use of systemic steroids; Z79.899 Other long term (current) drug therapy; Z88.5 Allergy status to narcotic agent; Z88.0 Allergy status to penicillin; Z88.8 Allergy status to other drugs, medicaments and biological substances
CPT/HCPCS: 80053; 85025; 93005; 93010; 99284-25

== ENCOUNTER 2024-03-30 16:08 | Observation (INO) | payer OTHER ==
[~2024-03-30] VITALS: Ht 154.9 cm; Wt 85.7 kg
[2024-03-30 16:36] LABS: BASOPHILS ABSOLUTE AUTO 0.05 K/mm3 (0.00-0.23); BASOPHILS PERCENT AUTO 0 % (0-2); EOSINOPHILS ABSOLUTE AUTO 0.13 K/mm3 (0.00-0.68); EOSINOPHILS PERCENT AUTO 1 % (0-6); Hematocrit 37.7 % (33.0-51.0); IMMATURE GRAN ABSOLUTE AUTO 0.04 K/mm3 (0.00-0.10); IMMATURE GRAN PERCENT AUTO 0 % (0-1); LYMPHOCYTES ABSOLUTE AUTO 1.91 K/mm3 (0.84-5.20); LYMPHOCYTES PERCENT AUTO 15 % (21-46); MONOCYTES ABSOLUTE AUTO 1.04 K/mm3 (0.16-1.47); MONOCYTES PERCENT AUTO 8 % (4-13); Mean Corpuscular HGB Conc 31.8 g/dL (31.5-36.5); Mean Corpuscular Volume 88 fL (80-100); Mean Platelet Volume 10.3 fL (9.1-12.4); NEUTROPHILS PERCENT AUTO 75 % (41-73); Platelet Count 272 K/mm3 (150-400); RDW Coefficient Variation 15.1 % (11.7-14.2); RDW Standard Deviation 48.7 fL (35.1-46.3); Red Blood Cell Count 4.29 M/mm3 (3.80-5.20); White Blood Cell Count 12.57 K/mm3 (4.00-11.30)
[2024-03-30 16:42] VITALS: BP 170/101
[2024-03-30 16:59] LABS: Acetaminophen, Random 5.2 ug/mL (10.0-30.0); Alanine Aminotransfer (ALT/SGP 20 U/L (12-78); Albumin, Blood 2.9 g/dL (3.4-5.0); Albumin/Globulin Ratio 0.9 (0.8-1.8); Alk Phos 78 U/L (50-136); Anion Gap 10 mmol/L (3-11); Aspartate Aminotrans (AST/SGOT 19 U/L (12-37); Bilirubin, Total 0.4 mg/dL (0.1-1.0); Blood Urea Nitrogen 9 mg/dL (8-24); Bun/Creatinine Ratio 13.4 (12.0-20.0); CO2, Blood 22 mmol/L (21-32); Calcium, Blood 7.8 mg/dL (8.5-10.1); Chloride, Blood 112 mmol/L (98-108); Creatinine, Blood 0.67 mg/dL (0.40-1.00); Ethanol (Alcohol), Blood, Med <3 mg/dL; Globulin, Blood 3.2 g/dL (2.2-4.0); Glomerular Filtration Rate 104 (60-); Glucose, Blood 89 mg/dL (70-99); Salicylate <1.7 mg/dL (2.8-20.0); Sodium, Blood 140 mmol/L (136-145); Total Protein, Blood 6.1 g/dL (6.4-8.2)
[2024-03-30 17:01] LABS: Source, Urine Clean Catch
[2024-03-30 17:04] LABS: Appearance, Urine Clear (Clear); Bilirubin, Urine Neg (Neg); Blood, Urine 3+ (Neg); Glucose Qualitative, Urine Neg (Neg); Ketones, Urine 1+ (Neg); Leukocyte Esterase, Urine 2+ (Neg); Nitrite, Urine Neg (Neg); Protein, Urine Neg (Neg); Urobilinogen, Urine NORM (Normal)
[2024-03-30 17:09] LABS: Color, Urine Pale Yellow (P-Yellow)
[2024-03-30 17:10] LABS: Bacteria Few /hpf; Squamous Epithelial Cells Many /hpf (Few)
[2024-03-30 17:16] LABS: U Amphetamine Screen Not Detected; U Barbituate Screen Not Detected; U Benzodiazapine Screen Not Detected; U Buprenorphine Screen Not Detected; U Cannabinoids Screen Not Detected; U Cocaine Screen Not Detected; U Methadone Screen Not Detected; U Methamphetamine Screen Not Detected; U Opiates Screen Not Detected; U Oxycodone Screen Not Detected; U Phencyclidine Screen Not Detected
[2024-03-30] MEDS ORDERED: Haloperidol Lactate Inj. 5 MG/ML Injection ONE (18:37)
[2024-03-30] MEDS ORDERED: Haloperidol Lactate Inj. 5 MG/ML Injection IM ONE (18:40)
[2024-03-30] MEDS ORDERED: LORazepam 2 MG/ML 1ML Injection IM ONE (19:15)
[2024-03-30] MEDS ORDERED: CEPH500 PO (23:48)
[2024-03-30] MEDS ORDERED: Cephalexin Monohydrate 500 MG Cap PO ONE (23:50)
[2024-03-30] MEDS ORDERED: NS 1,000 ML IV SCH (23:50)
[2024-03-31 00:13] LABS: Acetaminophen, Random <2.0 ug/mL (10.0-30.0)
[2024-03-31 00:15] LABS: Alanine Aminotransfer (ALT/SGP 22 U/L (12-78); Albumin/Globulin Ratio 0.8 (0.8-1.8); Alk Phos 75 U/L (50-136); Anion Gap 12 mmol/L (3-11); Aspartate Aminotrans (AST/SGOT 23 U/L (12-37); Bilirubin, Total 0.3 mg/dL (0.1-1.0); Blood Urea Nitrogen 10 mg/dL (8-24); CO2, Blood 22 mmol/L (21-32); Calcium, Blood 7.9 mg/dL (8.5-10.1); Chloride, Blood 112 mmol/L (98-108); Creatinine, Blood 0.71 mg/dL (0.40-1.00); Globulin, Blood 3.7 g/dL (2.2-4.0); Glomerular Filtration Rate 102 (60-); Glucose, Blood 82 mg/dL (70-99); Potassium, Blood 3.9 mmol/L (3.5-5.5); Sodium, Blood 142 mmol/L (136-145); Total Protein, Blood 6.7 g/dL (6.4-8.2)
== END 2024-03-31 16:33 | disposition home or self-care (01) ==
LOC: ER 16:08 → EOR 16:09
PROVIDERS: ADMIT Student in an Organized Health Care Education/Training Program
DX: T39.312A Poisoning by propionic acid derivatives, intentional self-harm, initial encounter (principal); F33.3 Major depressive disorder, recurrent, severe with psychotic symptoms; F43.12 Post-traumatic stress disorder, chronic; N39.0 Urinary tract infection, site not specified; I10 Essential (primary) hypertension; E78.5 Hyperlipidemia, unspecified; H54.62 Unqualified visual loss, left eye, normal vision right eye; Q11.2 Microphthalmos; Z79.899 Other long term (current) drug therapy; Z88.0 Allergy status to penicillin; Z88.5 Allergy status to narcotic agent; Z88.8 Allergy status to other drugs, medicaments and biological substances
CPT/HCPCS: 80053; 80320; 81001; 84703; 85025; 87086; 93005; 93010; 96372; 99285-25; G0378; G0480; J1630